=== PATIENT | female | born 1945 | race Caucasian/White ===

== ENCOUNTER 2025-04-29 12:42 | Outpatient (AMB) | payer MEDICARE, OTHER, SELFPAY ==
--- NOTE | 2025-04-29 12:55 | A.SPINEOV_ITS ---
Vital Signs 04/29/25 12:57 Height 5 ft 1 in Weight 102 lb BMI 19.3 Intake Visit Reasons: Neck Pain. Intake Note: Mrs. Castle is here today c/o tingling sensation on the neck area. 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 HPI: This 79-year-old female developed tingling in the distal part of her right arm radiating to her thumb after gardening. The symptoms started in January. Over time the symptoms have diminished but are still present intermittently. The only activity that produces reproducible symptoms is swimming. She can put makeup on develop the tingling. Currently he is mostly situated in the dorsal part of the lower arm. She went to the chiropractor. She denies pain. She denies weakness. She denies difficulty using her hands. She denies balance problems. The left side is unaffected. 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 She is able to reproduce tingling in the above-mentioned distribution with extension of her neck. No motor deficits. No sensory deficits. Normal reflexia. No pathological reflexes. 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 There are no signal changes in his spinal cord. Impression/Plan: This 79-year-old female is most likely suffering from a C6 radiculopathy tingling after guarding. She has no signs of myelopathy on exam. I advised her to continue conservative measures. I would not offer her a cervical decompression in the absence of clear myelopathic symptoms on history or exam. I would like to follow-up in 3 months for a re-evaluation. She will contact my office sooner if additional symptoms develop. She has no restrictions. Thank you for allowing me to participate in your patients care. total time spent was 50 minutes in counseling ,coordination of plan, personal review of imaging, surgical decision making and subsequent plan Jose Manuel Sanchez MD, PhD Spine Fellowship Trained Neurosurgeon Director, [facility] Coding Level of Care Code New Pt Level 4 (93663) Diagnoses Spinal cord compression due to degenerative disorder of spinal column M47.10
[2025-04-29 12:57] VITALS: BMI 19.3
--- OUTSIDE RECORDS SUMMARY | 2025-04-29 13:15 | XMS_ITS | Encounter Summary ---
Author Organization [facility] Address [address] [place] [phone] Phone Care Team Providers Care Ventilating Equipment Installer Name Role Phone Cony Camilo Primary Care Provider [phone] Encounter Details Date Type Department Care Team (Late st Contact Info) Description 04/09/2023 Transcribe Orders Virtual Department [address] [place] [address] Cony Camilo PA [address] [place] [phone] [email or web address] Breast screening (Primary Dx) Social History Tobacco Use Types Packs/Day Years Used Date Smoking Tobacco: Never Smokeless Tobacco: Never Alcohol Use Standard Drinks/Week Comments Never 0 (1 standard drink = 0.6 oz pur e alcohol) Education Answer Date Recorded Are you interested in more education? Not on ron e 01/25/2023 Are you concerned about learning? Not on file 01/25/2023 No 01/25/2023 No 01/25/2023 Digital Access Answer Date Recorded No 02/24/2023 No 02/24/2023 Reliable internet access at home? Not on file 02/24/2023 Device with a working camera? 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 Not on file Not on file documented as of this encounter Plan of Treatment Upcoming Encounters Date Type Department Care Team (Late st Contact Info) Description 12/12/2024 Procedure Pass [address] [id number] 06/22/2025 2:45 PM EDT Appointment [address] [address] Cony Camilo PA [address] [place] [phone] [email or web address] 06/25/2025 8:30 AM EDT Office Visit [facility] [address] [place] [phone] Jaxon Yang DO [address] [place] [phone] [email or web address] documented as of this encounter Goals Goal Patient Goal Type Associated Problems Recent Progress Patient-Stated? Author Attending meditation / other stress management classes Lifestyle No Everette, Juan Galindo MD, MPH documented as of this encounter Results * (ABNORMAL) BI MAMMOGRAM SCREENING WITH TOMOSYNTHESIS WITH CAD (BILATERAL) (02/18/2024 10:06 AM EDT) Anatomical Region Laterality Modality Breast Left, Breast Right, Breast Bilateral Bila teral Mammography 02/20/2024 8:26 AM EDT Addenda Addendum by Aparna Myrick MD on 03/12/2024 7:36 AM EDT ADDENDUM: Addendum: Remote prior mammograms from [facility] were obtained dated 12/05/2020. Upon comparison with outside priors, there is no change in the recommendation for additional imaging of right breast asymmetry. Impressions 03/03/2024 1:45 PM EDT 1. Asymmetry in the right breast for which additional imaging is recommended with diagnostic mammography and possible ultrasound. 2. No mammographic evidence of malignancy in the left breast. BI-RADS 0 INCOMPLETE Needs additional imaging evaluation The patient will be notified of the results and recommendations. The mammography department will contact the patient to arrange for the additional imaging. Narrative 03/03/2024 1:45 PM EDT BI MAMMOGRAM SCREENING WITH TOMOSYNTHESIS WITH CAD (BILATERAL) Additional patient information: Screening. COMPARISON: Comparison is made with relevant prior imaging, bilateral mammogram 02/15/2023, 02/13/2022. Breast composition: The breast tissue is heterogeneously dense which may obscure small masses. FINDINGS: Right An asymmetry with indistinct margins measuring 0.7 cm is present on MLO view in the upper right breast at posterior depth. Left No abnormal masses, suspicious calcifications, or other significant findings are identified mammographically in the left breast. Procedure Note Aparna Myrick MD - 03/03/2024 BI MAMMOGRAM SCREENING WITH TOMOSYNTHESIS WITH CAD (BILATERAL) Additional patient information: Screening. COMPARISON: Comparison is made with relevant prior imaging, bilateralmammogram 02/15/2023, 02/13/2022. Breast composition: The breast tissue is heterogeneously dense which mayobscure small masses. FINDINGS: Right An asymmetry with indistinct margins measuring 0.7 cm is present on MLOview in the upper right breast at posterior depth. Left No abnormal masses, suspicious calcifications, or other significantfindings are identified mammographically in the left breast. IMPRESSION: 1. Asymmetry in the right breast for which additional imaging isrecommended with diagnostic mammography and possible ultrasound. 2. No mammographic evidence of malignancy in the left breast. BI-RADS 0 INCOMPLETE Needs additional imaging evaluation The patient will be notified of the results and recommendations. Themammography department will contact the patient to arrange for theadditional imaging. Cony WELSH IMG MG EXAMS Edited Result - Final documented in this encounter Visit Diagnoses Diagnosis Breast screening- Primary Breast screening, unspecified Breast screening Breast screening, unspecified documented in this encounter Care Teams Ventilating Equipment Installer Relationship Specialty Start Date End Date Cony Camilo PA [address] [place] [phone] [email or web address] PCP - General 12/09/21 documented as of this encounter Additional Source Comments The information contained in this document represents components of the legal health record. It is not the complete legal health record.[facility]
--- OUTSIDE RECORDS SUMMARY | 2025-04-29 13:15 | XMS_ITS | Patient Health Record ---
Author Organization [facility] rajeev Address [address] [place] [address] Care Team Providers Care Nuclear Unit Operator Name Role Phone Cony Camilo Primary Care Provider Laquita Dempsey Unavailable [phone] Danny Tejeda Unavailable [phone] Phani Fragoso Unavailable [phone] Allergies Allergen (clinical drug ingredient) Drug/Non Drug Allergy documented on EMR Reaction Allergy Type Onset Date Status Penicillin rash/hives Drug Allergy Activ e neomycin Neomycin rash Drug Allergy Active cetirizine Cetirizine felt wired Drug Allergy Acti ve erythromycin Erythromycin nausea/vomiting Drug Allergy Active Results Component Value Reference Range Notes COMPREHENSIVE METABOLIC PAN -[id number] Reviewed date:08/19/2024 11:08:35 AM Interpretation: Performing Lab:NL2, [facility] [id number] Nataliia Tenorio Notes/Report: Received Date: NON-FASTING; NON-FASTING; NON-FASTING GLUCOSE 83 65-99 mg/dL Fasting reference interval UREA NITROGEN (BUN) 15 7-25 mg/dL CREATININE 0.74 0.60-1.00 mg/dL EGFR 83 > OR = 60 mL/min/1.73m2 BUN/CREATININE RATIO SEE NOTE: -22 (calc) Not Reported: BUN and Creatinine are within reference range. SODIUM 134 135-146 mmol/L POTASSIUM 4.6 3.5-5.3 mmol/L CHLORIDE 99 98-110 mmol/L CARBON DIOXIDE 30 20-32 mmol/L CALCIUM 9.2 8.6-10.4 mg/dL PROTEIN, TOTAL 6.4 6.1-8.1 g/dL ALBUMIN 4.5 3.6-5.1 g/dL GLOBULIN 1.9 1.9-3.7 g/dL (calc) ALBUMIN/GLOBULIN RATIO 2.4 1.0-2.5 (calc) BILIRUBIN, TOTAL 0.9 0.2-1.2 mg/dL ALKALINE PHOSPHATASE 49 37-153 U/L AST 15 10-35 U/L ALT 9 6-29 U/L LIPID PANEL Reviewed date:08/19/2024 11:08:52 AM Interpretation: Performing Lab:NL2, [facility] Nataliia Tenorio Notes/Report: Received Date: NON-FASTING; NON-FASTING; NON-FASTING CHOLESTEROL, TOTAL 158 <200 mg/dL HDL CHOLESTEROL 85 > OR = 50 mg/dL TRIGLYCERIDES 52 <150 mg/dL LDL-CHOLESTEROL 60 Reference range: <100 Desirable range <100 mg/dL for primary prevention; <70 mg/dL for patients with CHD or diabetic patients with > or = 2 CHD risk factors. LDL-C is now calculated using the -Rosenberg calculation, which is a validated novel method providing better accuracy than the Friedewald equation in the estimation of LDL-C. Martin CARRASQUILLO et al. ZARINA. 2013;310(19): 4047-3592 (http://education.modulR.com/f aq/FAZ873) CHOL/HDLC RATIO 1.9 <5.0 (calc) NON HDL CHOLESTEROL 73 <130 mg/dL (calc) For patients with diabetes plus 1 major ASCVD risk factor, treating to a non-HDL-C goal of <100 mg/dL (LDL-C of <70 mg/dL) is considered a therapeutic option. CBC NO DIFF - 1759 Reviewed date:08/19/2024 11:08:42 AM Interpretation: Performing Lab:NL2, [facility] Nataliia Tenorio Notes/Report: Received Date: NON-FASTING; NON-FASTING; NON-FASTING WHITE BLOOD CELL COUNT 5.7 3.8-10.8 Thousand/uL RED BLOOD CELL COUNT 4.12 3.80-5.10 Million/uL HEMOGLOBIN 13.2 11.7-15.5 g/dL HEMATOCRIT 40.6 35.0-45.0 % MCV 98.5 80.0-100.0 fL MCH 32.0 27.0-33.0 pg MCHC 32.5 32.0-36.0 g/dL For adults, a slight decrease in the calculated MCHC value (in the range of 30 to 32 g/dL) is most likely not clinically significant; however, it should be interpreted with caution in correlation with other red cell parameters and the patient's clinical condition. RDW 13.1 11.0-15.0 % PLATELET COUNT 254 140-400 Thousand/uL MPV 11.2 7.5-12.5 fL MRI CERVICAL SPINE (NEURO) F OCUS WITHOUT CONTRAST Reviewed date:03/27/2025 06:27:23 AM Interpretation: Performing Lab: Notes/Report: MRI CERVICAL SPINE (NEURO) FOCUS WITHOUT CONTRAST Referring clinician's provided indication for this examination in Epic: Outside Radiology Order TECHNIQUE: MRI CERVICAL SPINE (NEURO) FOCUS WITHOUT CONTRAST Multi-sequence, multi-planar MRI of the cervical spine was performed without intravenous contrast. COMPARISON: FINDINGS: CERVICAL SPINE: Alignment and Vertebrae: Normal alignment. No compression fracture. Marrow: No bone marrow replacing lesion. Discs and Endplates: There is moderate intervertebral disc height loss at C3-4, C4-5, C5-6, and C6-7. Spinal Cord: No spinal cord compression or signal abnormality. Soft Tissue: Normal. No prevertebral edema. Findings by level: C2-C3: No spinal canal or neural foraminal narrowing. C3-C4: There is mild spinal canal narrowing due to broad-based disc protrusion. There is moderate left and severe right neural foraminal narrowing. C4-C5: There is moderate spinal canal narrowing due to broad-based disc protrusion and ligamentum flavum infolding. There is severe bilateral neural foraminal narrowing. C5-C6: There is moderate spinal canal narrowing due to broad-based disc protrusion and ligamentum flavum infolding. There is severe bilateral neural foraminal narrowing. C6-C7: There is mild spinal canal narrowing due to broad-based disc protrusion. There is moderate bilateral neural foraminal narrowing. C7-T1: No spinal canal or neural foraminal narrowing. IMPRESSION: 1. Cervical degenerative change as above with moderate spinal canal narrowing at C4-5 and C5-6. Interpreted by: Hardik Cummins DO Signed by: Hardik Cummins DO 03/25/25 Final result Cspine wo Pt sts chronic rt arm tingling primarily from elbow to thumb -9 weeks ago was gardening and has begun to worsen since [facility] MRI CERVICAL SPINE (NEURO) FOCUS WITHOUT CONTRAST Referring clinician' s provided indication for this examination in Epic: Outside Radiology Order TECHNIQUE: MRI CERVI CAN SPINE (NEURO) FOCUS WITHOUT CONTRAST Multi-sequence, multi-planar MRI of the cervical spine was performed without intravenous contrast. COMPARISON: FINDINGS: CERVICAL SPINE: Alignment and Vertebrae: Normal alignment. No compression fracture. Marrow: No bone negrito ow replacing lesion. Discs and Endplates: There is moderate intervertebral disc height loss at C3-4, C4-5, C5-6, and C6-7. Spinal Cord: No spin al cord compression or signal abnormality. Soft Tissue: Normal. No prevertebral edema. Findings by level: C2-C3: No spinal can al or neural foraminal narrowing. C3-C4: There is mild spinal canal narrowing due to broad-based disc protrusion. There is moderate left and severe right neural foraminal narrowing. C4-C5: There is moderate spinal canal narrowing due to broad-based disc protrusion and ligamentum flavum infolding. There is severe bilateral neural foraminal narrowing. C5-C6: There is moderate spinal canal narrowing due to broad-based disc protrusion and ligamentum flavum infolding. There is severe bilateral neural foraminal narrowing. C6-C7: There is mild spinal canal narrowing due to broad-based disc protrusion. There is moderate bilateral neural foraminal narrowing. C7-T1: No spinal can al or neural foraminal narrowing. IMPRESSION: 1. Cervical degenerative change as above with moderate spinal canal narrowing at C4-5 and C5-6. Electronically Kristin d by: Hardik Cummins MD on 03/25/2025 11:52 AM Interpreted by: Hardik Cummins DO Signed by: Hardik Cummins DO 03/25/25 Final result Cspine wo Pt sts chronic rt ar m tingling primarily from elbow to thumb -9 weeks ago was gardening and has begun to worsen since Reason For Referral Reason repeat colonoscopy d ue 2024, h/o polyps, redundant colon - pt would like to discuss with MD prior to considering repeat colonoscopy Diagnosis 1 Encounter for screen ing for malignant neoplasm of colon (Z12.11) Referral Organization [facility] NO Referring Provider First Name Cony Referring Provider Last Name Ton Referring Provider [facility] ctice Referred Provider [employer] [employer] Referred Provider Specialty Gastroentero logy General Notes Radha Guerin 08/01 01:38:52 PM > referral faxed to: [phone] Clinical Notes Provider Name: TRACEY Anderson, Provider , Address1: [address], Zip: [place], [address], , Referral Priority Routine Reason PT for help developi ng an independent bone building exercise program for her osteoporosis with Philip Fleming Diagnosis 1 Osteoporosis NOS (M8 1.0) Referral Organization [facility] Referring Provider First Name Cony Referring Provider Last Name Ton Referring Provider [facility] ctice Referred Provider Fran Bravo, [facility] Referred Provider Specialty PT,OT, SPEEC H General Notes PT referral to [facility] [place] for Christelle to see Philip Fleming, PT for help developing an independent bone building exercise program for her osteoporosis, Radha Guerin 09/26/2024 09:36:47 AM > Referral faxed to: [phone] Clinical Notes Provider Name: Hilda B[facility], [facility] [place], Provider , Address1: [address], Zip: [place], [address], , Referral Priority Routine Reason for cervical radicul opathy Diagnosis 1 Radiculopathy, cervi can region (M54.12) Referral Organization [facility] Referring Provider First Name Cony Referring Provider Last Name Ton Referring Provider [facility] ctice Referred Provider Bull Kramre NEOS Referred Provider Specialty Orthopedic S urgery General Notes Radha Guerin 10/2024 07:19:51 AM > referral faxed to: [phone] Clinical Notes Provider Name: Bull Kramer [facility]OS, Provider , Provider Speciality: Orthopedic Surgery, Address1: [address] [place], [place] [address], [facility], Zip: [place], [address], , Referral Priority Routine Reason cervical radiculopat hy Diagnosis 1 Radiculopathy, cervi can region (M54.12) Referral Organization [facility] Referring Provider First Name Cony Referring Provider Last Name Ton Referring Provider Speciality Family Pra gume Referred Provider Iván Padilla Referred Provider Specialty Neurosurgery General Notes Radha Guerin 11/2024 09:07:15 AM > referral faxed to: [phone] Clinical Notes Provider Name: Ana Padilla, Provider , Address1: [address] [place] [address], Address2: [address] , [facility], Zip: [place], [address], , Referral Priority Routine Medications Medication SIG (Take, Route, Frequency, Duration) Notes Start Date End Date Status Finasteride 5 MG 1 tab(s) orally every other day for 90 days Active Vitamin D3 50 MCG (1999 UT) 1 tablet orally once a day 2500IUs Active Pravastatin Sodium 20 MG TAKE 1 TABLET BY MOUTH EVERY DAY FOR 90 DAYS for 90 Active Losartan Potassium 50 MG 1 tab(s) orally once a day for 90 days Active Reclast 5 MG/100ML as directed Intravenous once a yr Active Calcium 600 MG 1 tablet with meals Orally once a day unsure of strength Active Magnesium - as directed Orally once a day unsure of strength Active Immunizations Vaccine Route Administration Date Status Comme nts COVID-19 Vaccine (Moderna), History Unknown 12/20/2020 Administered COVID-19 Vaccine (Moderna), History Unknown 11/22/2020 Administered FLUZONE HIGH DOSE 65+ PURCHASED IM Intramuscular 07/04/2021 Administered Shingrix, history Unknown 07/30/2018 Administered Shingrix, history Unknown 02/27/2018 Administered Hep A Vaccine; History Unknown 03/31/2014 Administered Hep A Vaccine; History Unknown 12/08/2014 Administered Flu Vaccine; History Unknown 08/17/2013 Administered Flu Vaccine; History Unknown 07/23/2015 Administered Flu Vaccine; History Unknown 08/14/2017 Administered Flu Vaccine; History Unknown 06/25/2018 Administered Flu Vaccine; History Unknown 07/16/2019 Administered Flu Vaccine; History Unknown 07/13/2020 Administered pneumovax vaccine history Unknown 11/14/2012 Administer ed Prevnar 13 History Unknown 12/08/2014 Administered IPV Vaccine; History Unknown 03/31/2014 Administered rubella vaccine (history) Unknown 11/14/1991 Administer ed TDAP history Unknown 02/24/2012 Administered Covid Vaccine Booster (Moderna), History Unknown 08/01/2021 Administered Covid Vaccine Booster (Moderna), History Unknown 01/16/2022 Administered Covid Vac Bivalent Pfizer (history) 12+ Unknown 06/19/2022 Administered Flu Vaccine; History Unknown 06/11/2023 Administered COVID VACC 12+ MODERNA Unknown 06/20/2023 Administered Fluzone High Dose; HISTORY Unknown 06/09/2024 Administe red RSV VACC HISTORY ADULT Unknown 06/09/2024 Administered COVID HISTORY SPIKEVAX 12+ MODERNA Unknown 12/26/2023 Administered TDAP history Unknown 09/10/2024 Administered COVID HISTORY SPIKEVAX 12+ MODERNA Unknown 06/09/2024 Administered Social History Tobacco Use: Social History Observation Description Date Details (start date - stop date) Never Smoker NA - NA Smoking Smart Form: Question Answer Notes Are you a: nonsmoker Section Notes: Nutrition: vegetarian mostly , eats fish, chicken occasionally Nutrition: vegetarian mostly , eats fish, chicken occasionally Nutrition: vegetarian mostly , eats fish, chicken occasionally Nutrition: vegetarian mostly , eats fish, chicken occasionally Nutrition: vegetarian mostly , eats fish, chicken occasionally Nutrition: vegetarian mostly , eats fish, chicken occasionally Nutrition: vegetarian mostly , eats fish, chicken occasionally Nutrition: vegetarian mostly , eats fish, chicken occasionally Nutrition: vegetarian mostly , eats fish, chicken occasionally Nutrition: vegetarian mostly , eats fish, chicken occasionally Nutrition: vegetarian mostly , eats fish, chicken occasionally Nutrition: vegetarian mostly , eats fish, chicken occasionally Nutrition: vegetarian mostly , eats fish, chicken occasionally Nutrition: vegetarian mostly , eats fish, chicken occasionally Nutrition: vegetarian mostly , eats fish, chicken occasionally Nutrition: vegetarian mostly , eats fish, chicken occasionally Nutrition: vegetarian mostly , eats fish, chicken occasionally Nutrition: vegetarian mostly , eats fish, chicken occasionally Nutrition: vegetarian mostly , eats fish, chicken occasionally Nutrition: vegetarian mostly , eats fish, chicken occasionally Nutrition: vegetarian mostly , eats fish, chicken occasionally Nutrition: vegetarian mostly , eats fish, chicken occasionally Nutrition: vegetarian mostly , eats fish, chicken occasionally Nutrition: vegetarian mostly , eats fish, chicken occasionally Nutrition: vegetarian mostly , eats fish, chicken occasionally Nutrition: vegetarian mostly , eats fish, chicken occasionally Nutrition: vegetarian mostly , eats fish, chicken occasionally Nutrition: vegetarian mostly , eats fish, chicken occasionally Nutrition: vegetarian mostly , eats fish, chicken occasionally Problems Problem Type SNOMED Code ICD Code Onset Dates Problem Status W/U Status Risk Notes Problem Hyperlipidemia (11164341) Hyperlipidemia, unspecified (E78.5) Active confirmed Problem Essential hypertension (48939402) Hypertension, essential (I10) Active confirmed Problem Cataract (701966581) Cataract NOS (H26.9) Active confirmed Problem Cervical radiculopathy (55742981) Radiculopathy, cervical region (M54.12) Active confirmed Problem Osteoporosis (04247034) Osteoporosis NOS (M81.0) Active confirmed Problem Paresthesia (finding) (11235482) Paresthesias (R20.2) Active confirmed Vital Signs Temperature 97.7 degrees Fahrenheit 01/20/2025 Oximetry 98 01/20/2025 Blood pressure diastolic 68 mm Hg 01/20/2025 Height 61.0 in 04/01/2025 Blood pressure systolic 134 mm Hg 01/20/2025 Weight 101.0 lbs 04/01/2025 BMI 19.08 kg/m2 04/01/2025 Encounters Encounter Location Date Provider Diagnosis [address] [address] 01/20/2025 Phani Fragoso Paresthesias R20.[address] [address] 08/11/2024 Cony Camilo Adult physical JÚNIOR L Z00.00 ; Hypertension, essential I10 ; Hyperlipidemia, unspecified E78.5 ; Osteoporosis NOS M81.0 and Encounter for screening for malignant neoplasm of colon Z12.[address] [address] 11/26/2024 Cony Camilo Cataract NOS H26.9 ; Pre-op examination Z01.818 and Hypertension, essential I10 [address] [address] 01/27/2025 Danny Potash Radiculopathy, cervical region M54.12 and Segmental and somatic dysfunction of cervical region M99.[address] [address] 01/29/2025 Danny Potash Radiculopathy, cervical region M54.12 and Segmental and somatic dysfunction of cervical region M99.[address] [address] 02/03/2025 Danny Potash Radiculopathy, cervical region M54.12 and Segmental and somatic dysfunction of cervical region M99.[address] [address] 02/05/2025 Danny Potash Radiculopathy, cervical region M54.12 and Segmental and somatic dysfunction of cervical region M99.[address] [address] 02/10/2025 Danny Potash Radiculopathy, cervical region M54.12 and Segmental and somatic dysfunction of cervical region M99.[address] [address] 02/12/2025 Danny Potash Radiculopathy, cervical region M54.12 and Segmental and somatic dysfunction of cervical region M99.[address] [address] 02/19/2025 Danny Potash Radiculopathy, cervical region M54.12 and Segmental and somatic dysfunction of cervical region M99.[address] [address] 02/24/2025 Danny Potash Radiculopathy, cervical region M54.12 and Segmental and somatic dysfunction of cervical region M99.[address] [address] 02/26/2025 Danny Potash Radiculopathy, cervical region M54.12 and Segmental and somatic dysfunction of cervical region M99.[address] [address] 03/03/2025 Danny Potash Radiculopathy, cervical region M54.12 and Segmental and somatic dysfunction of cervical region M99.[address] [address] 03/17/2025 Danny Potash Radiculopathy, cervical region M54.12 ; Segmental and somatic dysfunction of cervical region M99.01 and Segmental and somatic dysfunction of thoracic region M99.[address] [address] 03/26/2025 Danny Potash Radiculopathy, cervical region M54.12 ; Segmental and somatic dysfunction of cervical region M99.01 and Segmental and somatic dysfunction of thoracic region M99.[address] [address] 04/01/2025 Cony Ton Radiculopathy, cervical region M54.12 [place] [address] [place] [address] 09/25/2024 Cony Ton [place] [address] [place] [address] 09/30/2024 Cony Ton [place] [address] [place] [address] 04/01/[address] Cony Ton [address] [address] 06/02/2024 Cony Ton [facility] [address] [address] 12/22/2024 Cony Ton [address] [address] 12/25/2024 Cony Ton [facility] [address] [place] [address] 01/20/2025 Laquita [facility] [address] [place] [address] 02/26/2025 Cony Ton Radiculopathy, cervical region M54.12 [facility] [address] [place] [address] 02/26/2025 Cony Ton [facility] [address] [place] [address] 02/27/2025 Cony Ton [facility] [address] [place] [address] 03/26/2025 Cony Ton [facility] [address] [address] 03/26/2025 Cony Ton [facility] [address] [place] [id number] 04/07/2025 Cony Ton [facility] [address] [place] [address] 04/22/2025 Cony Ton [place] [address] [place] [address] 04/23/2025 Laquita Dempsey Dempsey [place] [address] [place] [address] 04/23/2025 Laquita Dempsey Assessments Encounter Date Diagnosis (ICD Code) Assessment Notes Treatment Notes Treatment Clinical Notes Section Notes 01/20/2025 Paresthesias (ICD-10 - R20.2) -No red flags. Neuro exam reassuring. No indications for imaging. -Will start OTC aleve BID x 7 days for inflammation reduction. Can cont heat/ice prn. Advised caution with use of right arm. Pt planning to book appt with Danny for chiro as well. -Provided s/sx to contact us and when to f/up. Pt verbalizes good understanding. 08/11/2024 Adult physical NORMAL (ICD-10 - Z00.00) Mammo UTD. Due for repeat colonoscopy next year. Nutrition/exerc ise. Check labs. Labia with mild erythema and excoriation- no signs c/w lichen sclerosus- will monitor for now. 08/11/2024 Hypertension, essential (ICD-10 - I10) BP well controlled, continue current med regimen, check labs. 11/26/2024 Cataract NOS (ICD-10 - H26.9) Has upcoming cataract surgery with Dr. Rosen (R cataract 12/04/24, L cataract 12/11/24 at [facility]). Pt is medically optimized for upcoming procedure. 11/26/2024 Pre-op examination (ICD-10 - Z01.818) 01/27/2025 Radiculopathy, cervical region (ICD-10 - M54.12) Acute right upper extremity paresthesia likely secondary to cervical spondylosis creating lateral canal stenosis. Patient is neurologically intact and there are no overt contraindications to care at this time. prognosis is good at this time due to acuity of complaint, intermittent nature of symptoms and lack of hard neurological findings. 01/27/2025 Segmental and somatic dysfunction of cervical region (ICD-10 - M99.01) Acute right upper extremity paresthesia likely secondary to cervical spondylosis creating lateral canal stenosis. Patient is neurologically intact and there are no overt contraindications to care at this time. prognosis is good at this time due to acuity of complaint, intermittent nature of symptoms and lack of hard neurological findings. 01/29/2025 Radiculopathy, cervical region (ICD-10 - M54.12) Acute right upper extremity paresthesia likely secondary to cervical spondylosis creating lateral canal stenosis. Patient is neurologically intact and there are no overt contraindications to care at this time. prognosis is good at this time due to acuity of complaint, intermittent nature of symptoms and lack of hard neurological findings. 02/03/2025 Radiculopathy, cervical region (ICD-10 - M54.12) Acute right upper extremity paresthesia likely secondary to cervical spondylosis creating lateral canal stenosis. Patient is neurologically intact and there are no overt contraindications to care at this time. prognosis is good at this time due to acuity of complaint, intermittent nature of symptoms and lack of hard neurological findings. 02/05/2025 Radiculopathy, cervical region (ICD-10 - M54.12) Acute right upper extremity paresthesia likely secondary to cervical spondylosis creating lateral canal stenosis. Patient is neurologically intact and there are no overt contraindications to care at this time. prognosis is good at this time due to acuity of complaint, intermittent nature of symptoms and lack of hard neurological findings. 02/10/2025 Radiculopathy, cervical region (ICD-10 - M54.12) Acute right upper extremity paresthesia likely secondary to cervical spondylosis creating lateral canal stenosis. Patient is neurologically intact and there are no overt contraindications to care at this time. prognosis is good at this time due to acuity of complaint, intermittent nature of symptoms and lack of hard neurological findings. 02/12/2025 Radiculopathy, cervical region (ICD-10 - M54.12) Acute right upper extremity paresthesia likely secondary to cervical spondylosis creating lateral canal stenosis. Patient is neurologically intact and there are no overt contraindications to care at this time. prognosis is good at this time due to acuity of complaint, intermittent nature of symptoms and lack of hard neurological findings. 02/19/2025 Radiculopathy, cervical region (ICD-10 - M54.12) Acute right upper extremity paresthesia. DDX includes cervical spondylosis creating lateral canal stenosis vs thoracic outlet syndrome. Patient is neurologically intact and there are no overt contraindications to care at this time. prognosis is good at this time due to acuity of complaint, intermittent nature of symptoms and lack of hard neurological findings. 02/24/2025 Radiculopathy, cervical region (ICD-10 - M54.12) Acute right upper extremity paresthesia. DDX includes cervical spondylosis creating lateral canal stenosis vs thoracic outlet syndrome. Patient is neurologically intact and there are no overt contraindications to care at this time. prognosis is good at this time due to acuity of complaint, intermittent nature of symptoms and lack of hard neurological findings. 02/26/2025 Radiculopathy, cervical region (ICD-10 - M54.12) Acute right upper extremity paresthesia. DDX includes cervical spondylosis creating lateral canal stenosis vs thoracic outlet syndrome. Patient is neurologically intact and there are no overt contraindications to care at this time. prognosis is good at this time due to acuity of complaint, intermittent nature of symptoms and lack of hard neurological findings. 03/03/2025 Radiculopathy, cervical region (ICD-10 - M54.12) Acute right upper extremity paresthesia. DDX includes cervical spondylosis creating lateral canal stenosis vs thoracic outlet syndrome. Patient is neurologically intact and there are no overt contraindications to care at this time. prognosis is good at this time due to acuity of complaint, intermittent nature of symptoms and lack of hard neurological findings. 03/17/2025 Radiculopathy, cervical region (ICD-10 - M54.12) Subacute right upper extremity paresthesia. DDX includes cervical spondylosis creating lateral canal stenosis vs thoracic outlet syndrome. Patient is neurologically intact and there are no overt contraindications to care at this time. prognosis is good at this time due to acuity of complaint, intermittent nature of symptoms and lack of hard neurological findings. 03/17/2025 Segmental and somatic dysfunction of cervical region (ICD-10 - M99.01) Subacute right upper extremity paresthesia. DDX includes cervical spondylosis creating lateral canal stenosis vs thoracic outlet syndrome. Patient is neurologically intact and there are no overt contraindications to care at this time. prognosis is good at this time due to acuity of complaint, intermittent nature of symptoms and lack of hard neurological findings. 03/26/2025 Radiculopathy, cervical region (ICD-10 - M54.12) Subacute right upper extremity paresthesia. DDX includes cervical spondylosis creating lateral canal stenosis vs thoracic outlet syndrome. Patient is neurologically intact and there are no overt contraindications to care at this time. prognosis is good at this time due to acuity of complaint, intermittent nature of symptoms and lack of hard neurological findings. 04/01/2025 Radiculopathy, cervical region (ICD-10 - M54.12) Reviewed MRI results with pt and her symptoms- rec consult with specialist to further eval her symptoms and interpret MRI results. 02/26/2025 Radiculopathy, cervical region (ICD-10 - M54.12) 08/11/2024 Hyperlipidemia, unspecified (ICD-10 - E78.5) On statin, check labs. 11/26/2024 Hypertension, essential (ICD-10 - I10) BP well controlled. 01/29/2025 Segmental and somatic dysfunction of cervical region (ICD-10 - M99.01) Acute right upper extremity paresthesia likely secondary to cervical spondylosis creating lateral canal stenosis. Patient is neurologically intact and there are no overt contraindications to care at this time. prognosis is good at this time due to acuity of complaint, intermittent nature of symptoms and lack of hard neurological findings. 02/03/2025 Segmental and somatic dysfunction of cervical region (ICD-10 - M99.01) Acute right upper extremity paresthesia likely secondary to cervical spondylosis creating lateral canal stenosis. Patient is neurologically intact and there are no overt contraindications to care at this time. prognosis is good at this time due to acuity of complaint, intermittent nature of symptoms and lack of hard neurological findings. 02/05/2025 Segmental and somatic dysfunction of cervical region (ICD-10 - M99.01) Acute right upper extremity paresthesia likely secondary to cervical spondylosis creating lateral canal stenosis. Patient is neurologically intact and there are no overt contraindications to care at this time. prognosis is good at this time due to acuity of complaint, intermittent nature of symptoms and lack of hard neurological findings. 02/10/2025 Segmental and somatic dysfunction of cervical region (ICD-10 - M99.01) Acute right upper extremity paresthesia likely secondary to cervical spondylosis creating lateral canal stenosis. Patient is neurologically intact and there are no overt contraindications to care at this time. prognosis is good at this time due to acuity of complaint, intermittent nature of symptoms and lack of hard neurological findings. 02/12/2025 Segmental and somatic dysfunction of cervical region (ICD-10 - M99.01) Acute right upper extremity paresthesia likely secondary to cervical spondylosis creating lateral canal stenosis. Patient is neurologically intact and there are no overt contraindications to care at this time. prognosis is good at this time due to acuity of complaint, intermittent nature of symptoms and lack of hard neurological findings. 02/19/2025 Segmental and somatic dysfunction of cervical region (ICD-10 - M99.01) Acute right upper extremity paresthesia. DDX includes cervical spondylosis creating lateral canal stenosis vs thoracic outlet syndrome. Patient is neurologically intact and there are no overt contraindications to care at this time. prognosis is good at this time due to acuity of complaint, intermittent nature of symptoms and lack of hard neurological findings. 02/24/2025 Segmental and somatic dysfunction of cervical region (ICD-10 - M99.01) Acute right upper extremity paresthesia. DDX includes cervical spondylosis creating lateral canal stenosis vs thoracic outlet syndrome. Patient is neurologically intact and there are no overt contraindications to care at this time. prognosis is good at this time due to acuity of complaint, intermittent nature of symptoms and lack of hard neurological findings. 02/26/2025 Segmental and somatic dysfunction of cervical region (ICD-10 - M99.01) Acute right upper extremity paresthesia. DDX includes cervical spondylosis creating lateral canal stenosis vs thoracic outlet syndrome. Patient is neurologically intact and there are no overt contraindications to care at this time. prognosis is good at this time due to acuity of complaint, intermittent nature of symptoms and lack of hard neurological findings. 03/03/2025 Segmental and somatic dysfunction of cervical region (ICD-10 - M99.01) Acute right upper extremity paresthesia. DDX includes cervical spondylosis creating lateral canal stenosis vs thoracic outlet syndrome. Patient is neurologically intact and there are no overt contraindications to care at this time. prognosis is good at this time due to acuity of complaint, intermittent nature of symptoms and lack of hard neurological findings. 03/17/2025 Segmental and somatic dysfunction of thoracic region (ICD-10 - M99.02) Subacute right upper extremity paresthesia. DDX includes cervical spondylosis creating lateral canal stenosis vs thoracic outlet syndrome. Patient is neurologically intact and there are no overt contraindications to care at this time. prognosis is good at this time due to acuity of complaint, intermittent nature of symptoms and lack of hard neurological findings. 03/26/2025 Segmental and somatic dysfunction of cervical region (ICD-10 - M99.01) Subacute right upper extremity paresthesia. DDX includes cervical spondylosis creating lateral canal stenosis vs thoracic outlet syndrome. Patient is neurologically intact and there are no overt contraindications to care at this time. prognosis is good at this time due to acuity of complaint, intermittent nature of symptoms and lack of hard neurological findings. 08/11/2024 Osteoporosis NOS (ICD-10 - M81.0) On Reclant, followed by Dr. Yang. 03/26/2025 Segmental and somatic dysfunction of thoracic region (ICD-10 - M99.02) Subacute right upper extremity paresthesia. DDX includes cervical spondylosis creating lateral canal stenosis vs thoracic outlet syndrome. Patient is neurologically intact and there are no overt contraindications to care at this time. prognosis is good at this time due to acuity of complaint, intermittent nature of symptoms and lack of hard neurological findings. 08/11/2024 Encounter for screening for malignant neoplasm of colon (ICD-10 - Z12.11) 08/11/2024 Other Health maintenance flow sheet reveiwed and updated 01/27/2025 Other gentle mobilization to restrictions palpated on exam in supine position Manual myofascial release to soft tissue findings palpated on exam Therapeutic exercise: Practiced and recommended cervical retraction exercises x 20 repetitions. Recommended to continue at home for 10 repetitions every 2 hours and to stop if her symptoms are to worsen. Recommended to continue with her regular activities including swim, painting and gardening and to stop if her symptoms are to significantly worsen during the activity despite taking breaks and paying attention to her neck posture. Posttreatment: treatment rendered without incident recommended to return for care in 2 days followed by 1-2 times weekly care for 3-5 visits for initial trial of care. Goal for treatment is to significantly improve paresthesias and return to full activity Acute right upper extremity paresthesia likely secondary to cervical spondylosis creating lateral canal stenosis. Patient is neurologically intact and there are no overt contraindications to care at this time. prognosis is good at this time due to acuity of complaint, intermittent nature of symptoms and lack of hard neurological findings. 01/29/2025 Other gentle mobilization to restrictions palpated on exam in supine position Manual myofascial release to soft tissue findings palpated on exam Posttreatment: treatment rendered without incident recommended to return 1-2 times weekly care for 3-5 visits for initial trial of care. Goal for treatment is to significantly improve paresthesias and return to full activity Acute right upper extremity paresthesia likely secondary to cervical spondylosis creating lateral canal stenosis. Patient is neurologically intact and there are no overt contraindications to care at this time. prognosis is good at this time due to acuity of complaint, intermittent nature of symptoms and lack of hard neurological findings. 02/03/2025 Other gentle mobilization to restrictions palpated on exam in supine position Manual myofascial release to soft tissue findings palpated on exam Practiced and recommended median nerve flossing x 15 reps 3 sets/day to help improve sensation Posttreatment: treatment rendered without incident recommended to return 1-2 times weekly care for 3-5 visits for initial trial of care. Goal for treatment is to significantly improve paresthesias and return to full activity Acute right upper extremity paresthesia likely secondary to cervical spondylosis creating lateral canal stenosis. Patient is neurologically intact and there are no overt contraindications to care at this time. prognosis is good at this time due to acuity of complaint, intermittent nature of symptoms and lack of hard neurological findings. 02/05/2025 Other gentle mobilization to restrictions palpated on exam in supine position Manual myofascial release to soft tissue findings palpated on exam Practiced and recommended inclined pushups 10-15 reps 2 sets to help improve shoulder stability to decrease symptoms Posttreatment: treatment rendered without incident recommended to return 1-2 times weekly care for 3-5 visits for initial trial of care. Goal for treatment is to significantly improve paresthesias and return to full activity Acute right upper extremity paresthesia likely secondary to cervical spondylosis creating lateral canal stenosis. Patient is neurologically intact and there are no overt contraindications to care at this time. prognosis is good at this time due to acuity of complaint, intermittent nature of symptoms and lack of hard neurological findings. 02/10/2025 Other gentle mobilization to restrictions palpated on exam in supine position Manual myofascial release to soft tissue findings palpated on exam Practiced and recommended knee pushups 4-5 reps x 3 sets/day sets to help improve shoulder stability to decrease symptoms. Also discussed and practiced keeping shoulder engaged when reaching Posttreatment: treatment rendered without incident recommended to return 1-2 times weekly care for an additional 3-5 visits. Goal for treatment is to significantly improve paresthesias and return to full activity Acute right upper extremity paresthesia likely secondary to cervical spondylosis creating lateral canal stenosis. Patient is neurologically intact and there are no overt contraindications to care at this time. prognosis is good at this time due to acuity of complaint, intermittent nature of symptoms and lack of hard neurological findings. 02/12/2025 Other gentle mobilization to restrictions palpated on exam in supine position Manual myofascial release to soft tissue findings palpated on exam regressed from knee pushups to elevated surface pushups 3 sets 10-15 due to poor form on knees Posttreatment: treatment rendered without incident recommended to return 1 time weekly care for an additional 2-3 visits. Goal for treatment is to significantly improve paresthesias and return to full activity Acute right upper extremity paresthesia likely secondary to cervical spondylosis creating lateral canal stenosis. Patient is neurologically intact and there are no overt contraindications to care at this time. prognosis is good at this time due to acuity of complaint, intermittent nature of symptoms and lack of hard neurological findings. 02/19/2025 Other gentle mobilization to restrictions palpated on exam in supine position Manual myofascial release to soft tissue findings palpated on exam progressed to knee pushups 2 sets 5 1-2x/day, also practiced corner pectoralis stretching 20s-1min holds 3+x/day, and banded scapular retractions with yellow theraband 15 reps 2-3 sets/day. Omitted nerve flossing due to lack of efficacy. Posttreatment: treatment rendered without incident recommended to return 1 time weekly care for an additional 2-3 visits. Goal for treatment is to significantly improve paresthesias and return to full activity Acute right upper extremity paresthesia. DDX includes cervical spondylosis creating lateral canal stenosis vs thoracic outlet syndrome. Patient is neurologically intact and there are no overt contraindications to care at this time. prognosis is good at this time due to acuity of complaint, intermittent nature of symptoms and lack of hard neurological findings. 02/24/2025 Other gentle mobilization to restrictions palpated on exam in supine position Manual myofascial release to soft tissue findings palpated on exam amended HEP to include only cervical retraction exercises for 10 repetitions every 2 hours as well as isometric neck strengthening in retraction and the lateral flexion bilaterally for 3 sets of 30 second holds in each direction gentle mobilization to cervical spine restrictions palpated on exam in seated position coordinated care with primary care physician to order a cervical MRI to rule out degenerative cervical myelopathy Posttreatment: treatment rendered without incident Acute right upper extremity paresthesia. DDX includes cervical spondylosis creating lateral canal stenosis vs thoracic outlet syndrome. Patient is neurologically intact and there are no overt contraindications to care at this time. prognosis is good at this time due to acuity of complaint, intermittent nature of symptoms and lack of hard neurological findings. 02/26/2025 Other gentle mobilization to restrictions palpated on exam in supine position Manual myofascial release to soft tissue findings palpated on exam Practiced using cervical traction unit x 10 minutes and gave instructions for home care. Will trial this at home for 4 days and continue use if it is helpful for her symptoms. Recommended use up to 20 mins per day at below 20lbs pressure. Posttreatment: treatment rendered without incident Acute right upper extremity paresthesia. DDX includes cervical spondylosis creating lateral canal stenosis vs thoracic outlet syndrome. Patient is neurologically intact and there are no overt contraindications to care at this time. prognosis is good at this time due to acuity of complaint, intermittent nature of symptoms and lack of hard neurological findings. 03/03/2025 Other gentle mobilization to restrictions palpated on exam in supine position Manual myofascial release to soft tissue findings palpated on exam Discussed return to gym and recommended starting 2x/week with emphasis on maintaining neutral neck and shoulder posture during exercise Posttreatment: treatment rendered without incident Acute right upper extremity paresthesia. DDX includes cervical spondylosis creating lateral canal stenosis vs thoracic outlet syndrome. Patient is neurologically intact and there are no overt contraindications to care at this time. prognosis is good at this time due to acuity of complaint, intermittent nature of symptoms and lack of hard neurological findings. 03/17/2025 Other gentle mobilization to restrictions palpated on exam in supine position Manual myofascial release to soft tissue findings palpated on exam practiced and recommended doorway pectoralis stretching 30s-1min holds 3-5 mins/day and self massage to periscapular region with lax ball 2-3 mins/day Posttreatment: treatment rendered without incident Subacute right upper extremity paresthesia. DDX includes cervical spondylosis creating lateral canal stenosis vs thoracic outlet syndrome. Patient is neurologically intact and there are no overt contraindications to care at this time. prognosis is good at this time due to acuity of complaint, intermittent nature of symptoms and lack of hard neurological findings. 03/26/2025 Other gentle mobilization to restrictions palpated on exam in supine position Manual myofascial release to soft tissue findings palpated on exam practiced and recommended cervical retraction exercises as well as cervical self traction with her hands for 10-15 seconds at a time. Recommended to practice each of these 5 times per day and to stop if her symptoms are to worsen. Goal is to help improve space in the cervical neuroforamina to alleviate nerve compression. Also practice and recommended arm circles in each direction for 1 minute each to be practice 2 times per day. Goal is to help improve shoulder range of motion and strength with goal of alleviating compression around the thoracic outlet region. reviewed her MRI findings and coordinated care with PCP to facilitate referral to orthopedist for further evaluation and management Posttreatment: treatment rendered without incident we will follow up in 3-4 weeks Subacute right upper extremity paresthesia. DDX includes cervical spondylosis creating lateral canal stenosis vs thoracic outlet syndrome. Patient is neurologically intact and there are no overt contraindications to care at this time. prognosis is good at this time due to acuity of complaint, intermittent nature of symptoms and lack of hard neurological findings. Plan Of Treatment Pending Test Test Name Order Date ekg 05/17/2022 Mammogram, routine annual screening 11/2021 X ray : Humerus, Left 10/16/2022 X Ray : Tibia & Fibula, R 07/20/2022 HEMOGLOBIN A1C 08/08/2023 BASIC METABOLIC PANEL 01/09/2022 BI MAMMOGRAM DIAGNOSTIC (BILATERAL) 11/2021 Covid-19 PCR (use this one) 10/04/2021 Covid-19 PCR (use this one) 08/15/2021 Covid-19 PCR (use this one) 08/19/2021 Next Appt Details Provider Name:Cony Craig Camilo, 08/12/2025 01:30:00 PM, [address] [place], [id number], Insurance Providers Payer Name Payer Address Payer Phone Subscriber Number Group Number Insured Name Patient Relationship to Insured Coverage Start Date Coverage End Date MEDICARE [address] [place] [phone] [id number] CHRISTELLE VILLARREAL Self - patient is the insured [facility] SUPP [id number] ALTH [address] [place] [address] [id number] CHRISTELLE VILLARREAL Self - patient is the insured Medical (General) History Medical History History ICD Code Osteoporosis, bone density M ay 2020, stable; Dr. Yang - will be starting Reclast in Aug Hypertension Hyperlipidemia Sensitive skin R distal radius fx and repair, [facility], Dr. Santino [email or web address] 07/2022 Colonoscopy Oct/Nov 2020, repeat 5 years Surgical History Surgery Date(Month/Year) Cataract surgery for both eyes- Dr. fabiana khoury in [place] 01/2025 Limpoma removal R upper arm- [facility] 06/2022 R wrist fracture @ [facility] 12/23/21
== END 2025-04-29 13:58 | disposition home or self-care (01) ==
LOC: HO.HNS 12:42
PROVIDERS: PCP Physician Assistant; Visit Provider Neurological Surgery
DX: M47.10 Other spondylosis with myelopathy, site unspecified (principal)
CPT/HCPCS: 99204

== ENCOUNTER → 2025-04-29 12:42 | Outpatient (BNVA) | payer MEDICARE, OTHER, SELFPAY | PROVIDERS: PCP Physician Assistant; Visit Provider Neurological Surgery | DX: M47.12 Other spondylosis with myelopathy, cervical region (principal) | CPT/HCPCS: 99202 ==

== ENCOUNTER 2025-05-06 12:39 | Outpatient (AMB) | payer MEDICARE, OTHER, SELFPAY ==
--- NOTE | 2025-05-06 12:41 | HO.SPINEOV ---
Intake Visit Reasons: follow up Intake Note: Mrs. Castle is here today for a 3 month f/u after conservative treatments. 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 As you know, she has intermittent tingling in the right distal arm and an MRI showing spinal cord compression without myelomalacia. I did not find any alarming symptoms on exam and therefore I advised her to return to my clinic in 3 months for a repeat neurological exam. She had seen a neurosurgeon before who recommended an urgent cervical decompression and told us she was at risk for paralysis, especially in the event of a trauma. The literature does not support this. In fact the literature states that there is no evidence that people with pre-existent spinal cord compression are at a higher risk for injury. I repeated neurological exam today and also had a neurological exam performed by ANITHA Villegas. We both did not find pathological reflexes on exam. Maybe the knee reflexes were somewhat brisk bilaterally. I reiterated to the patient that I would not jump into a surgery and I would like to repeat an exam in 3 months unless her symptoms are progressive. I spent 15 minutes in his consult, Jose Manuel Sanchez MD, PhD Spine Fellowship Trained Neurosurgeon Director, [facility] Coding Level of Care Code Est Pt Level 2 (43604) Diagnoses Spinal cord compression due to degenerative disorder of spinal column M47.10
--- OUTSIDE RECORDS SUMMARY | 2025-05-06 13:13 | XMS_ITS | Encounter Summary ---
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 Not on file Not on file documented as of this encounter Plan of Treatment Upcoming Encounters Date Type Department Care Team (Late st Contact Info) Description 12/12/2024 Procedure Pass [address] [address] 06/22/2025 2:45 PM EDT Appointment [address] [address] Cony Camilo PA [address] [place] [id number] [email or web address] 06/25/2025 8:30 AM EDT Office Visit [facility] [address] [place] [id number] Jaxon Yang DO [address] [place] [phone] [email or web address] documented as of this encounter Goals Goal [...] EDT ADDENDUM: Addendum: Remote prior mammograms from [facility] were obtained dated 12/05/2020. Upon comparison [...] unspecified documented in this encounter Care Teams Chassis Wirer Relationship Specialty Start Date End Date Cony Camilo PA [address] [place] [id number] [email or web address] PCP - General 12/09/21 documented as of this encounter Additional Source Comments The information contained in this document represents components of the legal health record. It is not the complete legal health record.[facility]
--- OUTSIDE RECORDS SUMMARY | 2025-05-06 13:13 | XMS_ITS | Patient Health Record ---
Author Organization [facility] rajeve Address [address] [place] [address] Care Team Providers Care Guillotine Operator Name Role Phone Cony Camilo Primary Care Provider Laquita Dempsey Unavailable [phone] Danny Tejeda Unavailable [phone] Phani Fragoso Unavailable [phone] Allergies Allergen (clinical drug ingredient) Drug/Non Drug Allergy documented on EMR Reaction Allergy Type Onset Date Status Penicillin rash/hives Drug Allergy Activ e neomycin Neomycin rash Drug Allergy Active cetirizine Cetirizine felt wired Drug Allergy Acti ve erythromycin Erythromycin nausea/vomiting Drug Allergy Active Results Component Value Reference Range Notes COMPREHENSIVE METABOLIC PAN -[id number] Reviewed date:08/19/2024 11:08:35 AM Interpretation: Performing Lab:NL2, [facility] [id number] Nataliia Tenorio Notes/Report: Received Date: NON-FASTING; NON-FASTING; NON-FASTING GLUCOSE 83 65-99 mg/dL Fasting reference interval UREA NITROGEN (BUN) 15 7-25 mg/dL CREATININE 0.74 0.60-1.00 mg/dL EGFR 83 > OR = 60 mL/min/1.73m2 BUN/CREATININE RATIO SEE NOTE: - (calc) Not Reported: BUN and Creatinine are [...] Reviewed date:08/19/2024 11:08:52 AM Interpretation: Performing Lab:NL2, [employer] [facility] [facility] Nataliia Tenorio Notes/Report: Received Date: NON-FASTING; [...] LDL-C. Martin CARRASQUILLO et al. ZARINA. 2013;310(19): 2773-1957 (http://[email or web address]/f [email or web address]) CHOL/HDLC RATIO 1.9 <5.0 (calc) NON HDL CHOLESTEROL 73 <130 mg/dL (calc) For patients with diabetes plus 1 major ASCVD risk factor, treating to a non-HDL-C goal of <100 mg/dL (LDL-C of <70 mg/dL) is considered a therapeutic option. CBC NO DIFF - 1759 Reviewed date:08/19/2024 11:08:42 AM Interpretation: Performing Lab:NL2, [employer] [facility] Nataliia Tenorio Notes/Report: Received Date: NON-FASTING; [...] begun to worsen since [facility] MRI CERVICAL SPINE (NEURO) FOCUS WITHOUT [...] malignant neoplasm of colon (Z12.11) Referral Organization [facility] NO Referring Provider First Name Cony Referring Provider Last Name Ton Referring Provider [facility] ctice Referred Provider [employer] Referred Provider Specialty Gastroentero logy General Notes Radha Guerin 08/01 01:38:52 PM > referral faxed to: [phone] Clinical Notes Provider Name: TRACEY Anderson, Provider , Address1: [address] [facility], Zip: [place], [address], , Referral Priority Routine Reason PT for help developi ng an independent bone building exercise program for her osteoporosis with Philip Fleming Diagnosis 1 Osteoporosis NOS (M8 1.0) Referral Organization [facility] Referring Provider First Name Cony Referring Provider Last Name Ton Referring Provider [facility] ctice Referred Provider Fran Bravo, Re [facility] Referred Provider Specialty PT,OT, SPEEC H General Notes PT referral to [facility] [place] for Christelle to see Philip Fleming, PT for help developing an independent bone building exercise program for her osteoporosis, Radha Guerin 09/26/2024 09:36:47 AM > Referral faxed to: [phone] Clinical Notes Provider Name: Hilda Bravo, [facility] [place], Provider , Address1: [address] [facility], Zip: [place], [address], , Referral Priority Routine Reason for cervical radicul opathy Diagnosis 1 Radiculopathy, cervi can region (M54.12) Referral Organization [facility] Referring Provider First Name Cony Referring Provider Last Name Ton Referring Provider [facility] ctice Referred Provider Bull Kramer [facility]OS Referred Provider Specialty Orthopedic S urgery General Notes Radha Guerin 10/2024 07:19:51 AM > referral faxed to: [phone] Clinical Notes Provider Name: Bull Kramer NEOS, Provider , Provider Speciality: Orthopedic Surgery, Address1: [address] [place] [address], [facility], Zip: [place], [address], , Referral Priority Routine Reason cervical radiculopat hy Diagnosis 1 Radiculopathy, cervi can region (M54.12) Referral Organization [facility] Referring Provider First Name Cony Referring Provider Last Name Ton Referring Provider Speciality Family Lucas ctice Referred Provider Iván Padilla Referred Provider Specialty Neurosurgery General Notes Radha Guerin 11/2024 09:07:15 AM > referral faxed to: [phone] Clinical Notes Provider Name: Ana Padilla, Provider , Address1: [address] [place] [address], Address2: [facility] , [facility], Zip: [place], [address], , Referral Priority Routine Reason for appointments wit h Dr. Benitez Casas to discuss MRI results Diagnosis 1 Radiculopathy, cervi can region (M54.12) Referral Organization [facility] Referring Provider First Name Cony Referring Provider Last Name Ton Referring Provider Speciality Family Lucas ctice Referred Provider [facility] Referred Provider Specialty Orthopedic S urgery General Notes Dr. Benitez Casas, Kimberlee urosurgeon at [facility] in [place], fax: [phone], dx MRI results, opinion, Radha Guerin 05/06/2025 12:21:35 PM > REFERRAL FAXED TO: [phone] Referral Priority Routine Medications Medication SIG (Take, Route, Frequency, Duration) Notes Start Date End Date Status Finasteride 5 MG 1 tab(s) orally every other day for 90 days Active Vitamin D3 50 MCG (1999) 1 tablet orally once a day 2500IUs [...] Status W/U Status Risk Notes Problem Hyperlipidemia (59596158) Hyperlipidemia, unspecified (E78.5) Active confirmed Problem Essential hypertension (97394486) Hypertension, essential (I10) Active confirmed Problem Cataract (953848924) Cataract NOS (H26.9) Active confirmed Problem Cervical radiculopathy (86032364) Radiculopathy, cervical region (M54.12) Active confirmed Problem Osteoporosis (69621961) Osteoporosis NOS (M81.0) Active confirmed Problem Paresthesia (finding) (31006983) Paresthesias (R20.2) Active confirmed Vital Signs Temperature 97.7 degrees Fahrenheit 01/20/2025 Oximetry 98 01/20/2025 Blood pressure diastolic 68 mm Hg 01/20/2025 Height 61.0 in 04/01/2025 Blood pressure systolic 134 mm Hg 01/20/2025 Weight 101.0 lbs 04/01/2025 BMI 19.08 kg/m2 04/01/2025 Encounters Encounter Location Date Provider Diagnosis [address] [address] 01/20/2025 Phani Corriveau Paresthesias R20.[address] [address] 08/11/2024 Cony Camilo Adult physical JÚNIOR L Z00.00 ; Hypertension, essential I10 ; Hyperlipidemia, unspecified E78.5 ; Osteoporosis NOS M81.0 and Encounter for screening for malignant neoplasm of colon Z12.[address] [address] 11/26/2024 Cony Camilo Cataract NOS H26.9 ; Pre-op examination Z01.818 and Hypertension, essential I10 [address] [address] 01/27/2025 Danny Potash Radiculopathy, cervical region M54.12 and Segmental and somatic dysfunction of cervical region M99.[address] [address] 01/29/2025 Danny Potash Radiculopathy, cervical region M54.12 and Segmental and somatic dysfunction of cervical region M99.[address] [address] 02/03/2025 Danny Potash Radiculopathy, cervical region M54.12 and Segmental and somatic dysfunction of cervical region M99.[address] [address] 02/05/2025 Danny Potash Radiculopathy, cervical region M54.12 and Segmental and somatic dysfunction of cervical region M99.[address] [address] 02/10/2025 Danny Potash Radiculopathy, cervical region M54.12 and Segmental and somatic dysfunction of cervical region M99.[address] [address] 02/12/2025 Danny Potash Radiculopathy, cervical region M54.12 and Segmental and somatic dysfunction of cervical region M99.[address] [address] 02/19/2025 Danny Potash Radiculopathy, cervical region M54.12 and Segmental and somatic dysfunction of cervical region M99.[address] [address] 02/24/2025 Danny Potash Radiculopathy, cervical region M54.12 and Segmental and somatic dysfunction of cervical region M99.[address] [address] 02/26/2025 Danny Potash Radiculopathy, cervical region M54.12 and Segmental and somatic dysfunction of cervical region M99.[address] [address] 03/03/2025 Danny Potash Radiculopathy, cervical region M54.12 and Segmental and somatic dysfunction of cervical region M99.[address] [address] 03/17/2025 Danny Potash Radiculopathy, cervical region M54.12 ; Segmental and somatic dysfunction of cervical region M99.01 and Segmental and somatic dysfunction of thoracic region M99.[address] [address] 03/26/2025 Danny Potash Radiculopathy, cervical region M54.12 ; Segmental and somatic dysfunction of cervical region M99.01 and Segmental and somatic dysfunction of thoracic region M99.[address] [address] 04/01/2025 Cony Ton Radiculopathy, cervical region M54.12 [place] [address] [place] [address] 09/25/2024 Cony Camilo [facility] [address] [place] [address] 09/30/2024 Cony Camilo [facility] [address] [place] [address] 04/01/2025 Cony Camilo [place] [address] [place] [address] 05/01/2025 Cony Ton [facility] [address] [place] [address] 06/02/2024 Cony Ton [facility] [address] [place] [address] 12/22/2024 Cony Ton [facility] [address] [address] 12/25/2024 Cony Ton [place] [address] [place] [address] 01/20/2025 Laquita Dempsey [place] [address] [place] [address] 02/26/2025 Cony Ton Radiculopathy, cervical region M54.[address] [address] 02/26/2025 Cony Ton [facility] [address] [address] 02/27/2025 Cony Ton [place] [address] [place] [address] 03/26/2025 Cony Ton [facility] [address] [place] [address] 03/26/2025 Cony Ton [facility] [address] [place] [address] 04/07/2025 Cony Ton [facility] [address] [place] [address] 04/22/2025 Cony Ton [place] [address] [place] [address] 04/23/2025 Laquita Dempsey [place] [address] [place] [address] 04/23/2025 Laquita Dempsey Assessments Encounter Date Diagnosis [...] L cataract 12/11/24 at [facility]). Pt is medically optimized for upcoming procedure. [...] (BILATERAL) 11/2021 Covid-19 PCR (use this one) 08/15/2021 Covid-19 PCR (use this one) 08/19/2021 Covid-19 PCR (use this one) 10/04/2021 Next Appt Details Provider Name:Cony Camilo, 08/12/2025 01:30:00 PM, [address] [place] [address], [phone], Insurance Providers Payer Name Payer Address Payer Phone Subscriber Number Group Number Insured Name Patient Relationship to Insured Coverage Start Date Coverage End Date MEDICARE [address] [facility] [place] [address] [phone] [id number] CHRISTELLE VILLARREAL Self - patient is the insured [facility] SUPP [id number] ALTH [address] [place] [address] [phone] [id number] CHRISTELLE VILLARREAL Self - patient is the insured Medical (General) History Medical History History ICD Code Osteoporosis, bone density M ay 2020, stable; Dr. Yang - will be starting Reclast in Aug Hypertension Hyperlipidemia Sensitive skin R distal radius fx and repair, ORIF, Dr. De Covid19 07/2022 Colonoscopy Oct/Nov 2020, repeat 5 years Surgical History Surgery Date(Month/Year) Cataract surgery for both eyes- Dr. fabiana khoury in [place] 01/2025 Limpoma removal R upper arm- [facility] 06/2022 R wrist fracture @ [facility] 12/23/21
== END 2025-05-06 12:48 | disposition home or self-care (01) ==
LOC: HO.HNS 12:39
PROVIDERS: PCP Physician Assistant; Visit Provider Neurological Surgery
DX: M47.10 Other spondylosis with myelopathy, site unspecified (principal)
CPT/HCPCS: 99212

== ENCOUNTER → 2025-05-06 12:39 | Outpatient (BNVA) | payer MEDICARE, OTHER, SELFPAY | PROVIDERS: PCP Physician Assistant; Visit Provider Neurological Surgery | DX: M47.12 Other spondylosis with myelopathy, cervical region (principal) | CPT/HCPCS: 99212 ==

== ENCOUNTER 2025-07-29 13:24 | Outpatient (AMB) | payer MEDICARE, OTHER, SELFPAY ==
--- OUTSIDE RECORDS SUMMARY | 2025-06-17 06:15 | XMS_ITS ---
Author Organization [facility] ra[facility]ev Address [address] [place] [address] Care Team Providers Care Windows Server Specialist Name Role Phone Cony Camilo Primary Care Provider Laquita Dempsey Unavailable [phone] Allergies Allergen (clinical drug ingredient) Drug/Non Drug Allergy documented on EMR Reaction Allergy Type Onset Date Status erythromycin Erythromycin nausea/vomiting Drug Allergy Active cetirizine Cetirizine felt wired Drug Allergy Acti ve neomycin Neomycin rash Drug Allergy Active Penicillin rash/hives Drug Allergy Activ e REASON FOR VISIT flu, covid Medications Medication SIG (Take, Route, Frequency, Duration) Notes Start Date End Date Status Finasteride 5 MG Tablet 1 tab(s) orally every other day; Duration: 90 days Active Vitamin D3 50 MCG (1999 UT) Tablet 1 tablet orally once a day 2500IUs Active Reclast 5 MG/100ML Solution as directed Intravenous once a yr Active Calcium 600 MG Tablet 1 tablet with meal s Orally once a day unsure of strength Active Magnesium - Capsule as directed Orally once a day unsure of strength Active Losartan Potassium 50 MG Tablet 1 tab(s) orally once a day; Duration: 90 days Active Pravastatin Sodium 20 MG Tablet TAKE 1 TABLET BY MOUTH EVERY DAY FOR 90 DAYS; Duration: 90 Active Immunizations Vaccine Route Administration Date Status Comme nts FLUZONE HIGH DOSE 65+ PURCHASED IM Intramuscular 06/17/2025 Administered COVID VACC 19+ PFIZER PURCHASED IM Intramuscular 06/17/2025 Administered Encounters Encounter Location Date Provider Diagnosis [facility] [address] [address] 06/17/2025 Laquita Dempsey Encounter for immunization Z23 Assessments Encounter Date Diagnosis (ICD Code) Assessment Notes Treatment Notes Treatment Clinical Notes Section Notes 06/17/2025 Encounter for immunization (ICD-10 - Z23) Plan Of Treatment Next Appt Details Provider Name:Cony Camilo, 1 10/12/2024 01:30:00 PM, [address] [place], [address], Progress Notes * NATO VILLARREALB:1945 (80 yo F)Acc No.[id number]:06/17/2025 Progress Note Patient: CHRISTELLE JACOBS Provider: Jonathan Dempsey MD :1945 A ge:80 Y S ex:Female Date:06/17/2025 C #:[id number] Address:[address] [place], [place] [address] Pcp:Cony Camilo Subjective: * Chief Complaints: * F laura, estivenid * Medical History: Osteoporosis, bone density January 2021, stable; Dr. Yang - will be starting Reclast in Aug Hypertension Hyperlipidemia Sensitive skin R distal radius fx and repair, ORIF, Dr. De Covid19 07/2022 Colonoscopy Oct/Nov 2020, repeat 5 years * Medications: T akingMagnesium - Capsule as directed Orally once a day , Notes to Pharmacist: unsure of strengthCalcium 600 MG Tablet 1 tablet with meals Orally once a day , Notes to Pharmacist: unsure of strengthReclast 5 MG/100ML Solution as directed Intravenous once a yr Vitamin D3 50 MCG (1999 UT) Tablet 1 tablet orally once a day , Notes to Pharmacist: 2500IUsPravastatin Sodium 20 MG Tablet TAKE 1 TABLET BY MOUTH EVERY DAY FOR 90 DAYS Losartan Potassium 50 MG Tablet 1 tab(s) orally once a day Finasteride 5 MG Tablet 1 tab(s) orally every other day Medication List reviewed and reconciled with the patientTaking Magnesium - Capsule as directed Orally once a day , Notes to Pharmacist: unsure of strengthTaking Calcium 600 MG Tablet 1 tablet with meals Orally once a day , Notes to Pharmacist: unsure of strengthTaking Reclast 5 MG/100ML Solution as directed Intravenous once a yr Taking Vitamin D3 50 MCG (1999 UT) Tablet 1 tablet orally once a day , Notes to Pharmacist: 2500IUsTaking Pravastatin Sodium 20 MG Tablet TAKE 1 TABLET BY MOUTH EVERY DAY FOR 90 DAYS Taking Losartan Potassium 50 MG Tablet 1 tab(s) orally once a day Taking Finasteride 5 MG Tablet 1 tab(s) orally every other day Medication List reviewed and reconciled with the patient * Allergies: P enicillin: rash/hives - AllergyNeomycin: rash - AllergyCetirizine: felt wired - Side EffectsErythromycin: nausea/vomiting - Side Effects Assessment: * Assessment: 1. E ncounter for immunization - Z23 (Primary) Plan: * Immunizations: FLUZONE HIGH DOSE 65+ PURCHASED : 0.5 mL (Route: Intramuscular) given by Lexy Tucker CMA on Left Deltoid (Encounter for immunization) COVID VACC 19+ PFIZER PURCHASED : 0.3 mL (Route: Intramuscular) given by Lexy Tucker CMA on Left Deltoid (Encounter for immunization) Billing Information: * Visit Code: 32912 Office Visit, Est Pt.NURSE. Care Plan Details* * Electronic signature of Marissa Dempsey MD on 07/29/2025 at 05:08 PM EDT Sign off status: Pending * Provider: Jonathan Dempsey MD Date: 0 06/17/2025 Generated for Manny verdugo/Jorge/Marlin on: 1 05:08 PM EDT
--- NOTE | 2025-07-29 13:34 | A.SPINEOV_ITS ---
Intake Visit Reasons: follow up 3M Intake Note: Ms. Castle is here today for her 3 month F/u. 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 As you know she presented with right cervical radiculopathy. Imaging was worrisome due to the fact of spinal cord compression. Clinically, the patient had no signs of cervical myelopathy and we decided to repeat neurological exam in 3 months. Today the patient states that her symptoms have further improve. She hardly notices the tingling in her right arm anymore. She has extended her activities. A comprehensive neurological exam is intact for motor sensation and reflexes. The patient does not require surgical intervention. She has no limitations. I discussed the signs of cervical myelopathy and told her to return to my clinic if the symptoms occur or if there was a aggravation of her cervical radiculopathy. Thank you for allowing me take care of your patient. I spent 20 minutes in his consult for history, physical exam and answering questions Jose Manuel Sanchez MD, PhD Spine Fellowship Trained Neurosurgeon Director, [facility] Coding Level of Care Code Est Pt Level 3 (57156) Diagnoses Spinal cord compression due to degenerative disorder of spinal column M47.10
--- OUTSIDE RECORDS SUMMARY | 2025-07-29 14:27 | XMS_ITS | Encounter Summary ---
Author Organization [facility] Address [address] [place] [address] Phone Care Team Providers Care Quality Control Systems Manager Name Role Phone Cony Camilo Primary Care Provider [phone] Encounter Details Date Type Department Care Team (Late st Contact Info) Description 07/29/2025 2:27 PM EDT Hospital Encounter [facility] [address] [place] [address] Jaxon Yang DO [address] [place] [address] Social History Tobacco Use Types Packs/Day Years Used Date Smoking Tobacco: Never Passive Smoke Exposure: Never Smokeless Tobacco: Never Alcohol Use Standard [...] file Not on file 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 Not on file Not on file documented as of this encounter Plan of Treatment Upcoming Encounters Date Type Department Care Team (Late st Contact Info) Description 07/29/2025 Procedure Pass [address] [address] 10/05/2025 10:30 AM EST Infusion [address] [address] Jaxon Yang [address] [address] [email or web address] 03/01/2026 11:15 AM EDT Appointment [address] [address] Jaxon Yang [address] [address] [email or web address] 07/05/2026 10:15 AM EDT Appointment [address] [address] Cony Camilo PA [address] [place] [address] [email or web address] 07/29/2026 1:00 PM EDT Office Visit [facility] [address] [place] [address] Jaxon Yang [address] [address] Pending Results Name Type Priority Associated Diagnoses Date /Time 25-OH vitamin D Lab Routine Age-related osteoporosis without current pathological fracture 07/29/2025 2:30 PM EDT Scheduled Orders Name Type Priority Associated Diagnoses Orde r Schedule 25-OH vitamin D Lab Routine Age-related osteoporosis without current pathological fracture As Needed for 1 Occurrences starting 07/29/2025 until 07/29/2025 documented as of this encounter Goals Goal Patient Goal Type Associated Problems Recent Progress Patient-Stated? Author Attending meditation / other stress management classes Lifestyle No Juan Gaviria MD, MPH documented as of this encounter Visit Diagnoses Diagnosis Age-related osteoporosis without current pathological fracture documented in this encounter Care Teams Quality Control Systems Manager Relationship Specialty Start Date End Date Cony Camilo PA [address] [place] [address] [email or web address] PCP - General 12/09/21 documented as of this encounter Additional Source Comments The information contained in this document represents components of the legal health record. It is not the complete legal health record.[facility]
--- OUTSIDE RECORDS SUMMARY | 2025-07-29 17:06 | XMS_ITS | Encounter Summary ---
Author Organization [facility] Address [address] [place] [address] Phone Care Team Providers Care Mining Professionals Name Role Phone Chad Martínez MD Primary Care Provider Cony Camilo Primary Care Provider [phone] Encounter Details Date Type Department Care Team (Late st Contact Info) Description 11/17/2021 Ancillary Orders [facility],Outside Imaging [address] [place] [address] System, Provider Not In, [place] [address] Social History Tobacco Use Types Packs/Day Years Used Date Smoking Tobacco: Never Smokeless Tobacco: Never Alcohol Use Standard Drinks/Week Comments Not Asked 0 (1 standard drink = 0.6 oz pur e alcohol) Comments No Sex and Gender Information Value Date Recorded Sex Assigned at Female 10/08/2017 9:33 AM EST Legal Sex Female 7:56 PM EST Gender Identity Female Sexual Orientation Straight 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- [address] [address] 10/05/2025 10:30 AM EST Infusion [facility] [address] [place] [address] Jaxon Yang DO [address] [place] [address] 03/01/2026 11:15 AM EDT Appointment [facility], Bone Density [address] [address] Jaxon Yang, DO [address] [place] [address] 07/05/2026 10:15 AM EDT Appointment [facility] [address] Cony Camilo PA [address] [place] [address] [email or web address] 07/29/2026 1:00 PM EDT Office Visit [facility] [address] [place] [address] Jaxon Yang, DO [address] [place] [address] [employer] documented as of this encounter Goals Goal Patient Goal Type Associated Problems Recent Progress Patient-Stated? Author Attending meditation / other stress management classes Lifestyle No Juan Gaviria MD, MPH documented as of this encounter Results * Mammogram Outside (No Interpretation) (11/30/2019 12:00 AM EST) Narrative SYSTEMGENERATED, DOCUMENTATION - 11/17/2021 11:03 AM EST This study is for PACS storage only and not for interpretation. us Provider Not In System PhD IMG OUTSIDE IMAGING W /OUT INTERPRETATION Final Result documented in this encounter Visit Diagnoses Not on filedocumented in this encounter Care Teams Mining Professionals Relationship Specialty Start Date End Date Chad Martínez MD [address] [place] [address] [email or web address] PCP - General 04/24/16 2 Cony Camilo PA [address] [place] [address] [email or web address] PCP - General 12/09/21 documented as of this encounter Additional Source Comments The information contained in this document represents components of the legal health record. It is not the complete legal health record.[facility]
--- OUTSIDE RECORDS SUMMARY | 2025-07-29 17:06 | XMS_ITS | Encounter Summary ---
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 Not on file Not on file documented as of this encounter Plan of Treatment Upcoming Encounters Date Type Department Care Team (Late st Contact Info) Description 07/29/2025 Procedure Pass [facility], [facility]- [address] [address] 10/05/2025 10:30 AM EST Infusion [facility] [address] [place] [address] Jaxon Yang DO [address] [place] [address] [email or web address] 03/01/2026 11:15 AM EDT Appointment [facility], Bone Density [address] [address] Jaxon Yang, DO [address] [place] [address] 07/05/2026 10:15 AM EDT Appointment [facility] Mammography[address] [address] Cony Camilo PA [address] [place] [address] [email or web address] 07/29/2026 1:00 PM EDT Office Visit [facility] [address] [place] [address] Jaxon Yang, DO [address] [place] [address] [email or web address] documented as of this encounter Goals Goal Patient Goal Type Associated Problems Recent Progress Patient-Stated? Author Attending meditation / other stress management classes Lifestyle No Juan Gaviria MD, MPH documented as of this encounter Results * Mammogram Outside (No Interpretation) (12/05/2020 12:00 AM EST) Narrative SYSTEMGENERATED, DOCUMENTATION - 11/17/2021 11:02 AM EST This study is for PACS storage only and not for interpretation. us Provider Not In System PhD IMG OUTSIDE IMAGING W /OUT INTERPRETATION Final Result documented in this encounter Visit Diagnoses Not on filedocumented in this encounter Care Teams Custodial Maintenance Worker Relationship Specialty Start Date End Date Chad Martínez MD [address] [place] [address] [email or web address] PCP - General 04/24/16 2 Cony Camilo PA [address] [place] [address] [email or web address] PCP - General 12/09/21 documented as of this encounter Additional Source Comments The information contained in this document represents components of the legal health record. It is not the complete legal health record.[facility]
--- OUTSIDE RECORDS SUMMARY | 2025-07-29 17:06 | XMS_ITS | Encounter Summary ---
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 07/29/2026 1:00 PM EDT Office Visit [facility] [address] [place] [address] Jaxon Yang [address] [address] Scheduled Orders Name Type Priority Associated Diagnoses Orde r Schedule Mammogram Screening (Bilateral) Imaging Routine Breast screening Expected: 07/29/2025, Expires: 07/29/2027 documented as of this encounter Goals Goal Patient Goal Type Associated Problems Recent Progress Patient-Stated? Author Attending meditation / other stress management classes Lifestyle No Juan Gaviria MD, MPH documented as of this encounter Visit Diagnoses Diagnosis Breast screening- Primary Breast screening, unspecified documented in this encounter Care Teams Machine Helper Relationship Specialty Start Date End Date Cony Camilo PA [address] [place] [address] [email or web address] PCP - General 12/09/21 documented as of this encounter Additional Source Comments The information contained in this document represents components of the legal health record. It is not the complete legal health record.[facility]
--- OUTSIDE RECORDS SUMMARY | 2025-07-29 17:06 | XMS_ITS | Encounter Summary ---
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 Not on file documented as of this encounter Plan of Treatment Upcoming Encounters Date Type Department Care Team (Late st Contact Info) Description 07/29/2025 Procedure Pass [facility], [facility]- [address] [address] 10/05/2025 10:30 AM EST Infusion [facility] [address] [place] [address] Jaxon Yang DO 22 [place] [address] 03/01/2026 11:15 AM EDT Appointment [facility], Bone Density [address] [address] Jaxon Yang, DO [address] [place] [address] [email or web address] 07/05/2026 10:15 AM EDT Appointment [facility], Mamm[address] [address] Cony Camilo PA [address] [place] [address] [email or web address] 07/29/2026 1:00 PM EDT Office Visit [facility] [address] [place] [address] Jaxon Yang, DO 22 [place] [address] [email or web address] documented as of this encounter Goals Goal Patient Goal Type Associated Problems Recent Progress Patient-Stated? Author Attending meditation / other stress management classes Lifestyle No Juan Gaviria MD, MPH documented as of this encounter Results * US Breast Outside (No Interpretation) (12/06/2017 12:00 AM EST) Narrative SYSTEMGENERATED, DOCUMENTATION - 11/17/2021 11:00 AM EST This study is for PACS storage only and not for interpretation. us Provider Not In System PhD IMG OUTSIDE IMAGING W /OUT INTERPRETATION Final Result documented in this encounter Visit Diagnoses Not on filedocumented in this encounter Care Teams Lay Up Operator Relationship Specialty Start Date End Date Chad Martínez MD [address] [place] [address] [email or web address] PCP - General 04/24/16 2 Cony Camilo PA [address] [place] [address] [email or web address] PCP - General 12/09/21 documented as of this encounter Additional Source Comments The information contained in this document represents components of the legal health record. It is not the complete legal health record.[facility]
--- OUTSIDE RECORDS SUMMARY | 2025-07-29 17:06 | XMS_ITS | Encounter Summary ---
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 Not on file documented as of this encounter Plan of Treatment Upcoming Encounters Date Type Department Care Team (Late st Contact Info) Description 07/29/[address] [address] 10/05/2025 10:30 AM EST Infusion [facility] [address] [place] [address] Jaxon Yang DO 22 [place] [address] 03/01/2026 11:15 AM EDT Appointment [facility], Bone Density - [address] [address] Trey Jaxon DO [address] [place] [address] [email or web address] 07/05/2026 10:15 AM EDT Appointment [facility], Mammography- [address] [address] Cony Camilo PA [address] [place] [address] [email or web address] 07/29/2026 1:00 PM EDT Office Visit [facility] [address] [place] [address] Trey Jaxon [address] [address] [email or web address] documented as of this encounter Goals Goal Patient Goal Type Associated Problems Recent Progress Patient-Stated? Author Attending meditation / other stress management classes Lifestyle No Juan Gaviria MD, MPH documented as of this encounter Visit Diagnoses Not on filedocumented in this encounter Care Teams Bulk Sausage Casing Tier Off Relationship Specialty Start Date End Date Cony Camilo PA [address] [place] [address] [email or web address] PCP - General 12/09/21 documented as of this encounter Additional Source Comments The information contained in this document represents components of the legal health record. It is not the complete legal health record.[facility]
--- OUTSIDE RECORDS SUMMARY | 2025-07-29 17:06 | XMS_ITS | Encounter Summary ---
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 Not on file documented as of this encounter Plan of Treatment Upcoming Encounters Date Type Department Care Team (Late st Contact Info) Description 07/29/2025 Procedure Pass [address] [address] 10/05/2025 10:30 AM EST Infusion [address] [address] Jaxon Yang [address] [address] 03/01/2026 11:15 AM EDT Appointment [facility] Density [address] [address] Jaxon Yang [address] [address] M: 07/05/2026 10:15 AM EDT Appointment [address] [address] Cony Camilo PA [address] [place] [address] [email or web address] 07/29/2026 1:00 PM EDT Office Visit [facility] [address] [place] [address] Jaxon Yang [address] [address] documented as of this encounter Goals Goal Patient Goal Type Associated Problems Recent Progress Patient-Stated? Author Attending meditation / other stress management classes Lifestyle Juan Myrick MD, MPH documented as of this encounter Results * (ABNORMAL) BI MAMMOGRAM SCREENING WITH TOMOSYNTHESIS WITH CAD (BILATERAL) (02/18/2024 10:06 AM EDT) Anatomical Region Laterality Modality Breast Left, Breast Right, Breast Bilateral Bila teral Mammography 02/20/2024 8:26 AM EDT Addenda Addendum by Aparna Myrick MD on 03/12/2024 7:36 AM EDT ADDENDUM: Addendum: Remote prior mammograms from [facility] were obtained dated 12/05/2020. Upon comparison [...] unspecified documented in this encounter Care Teams Sand Conditioner Machine Relationship Specialty Start Date End Date Cony Camilo PA [address] [place] [address] [email or web address] PCP - General 12/09/21 documented as of this encounter Additional Source Comments The information contained in this document represents components of the legal health record. It is not the complete legal health record.[facility]
--- OUTSIDE RECORDS SUMMARY | 2025-07-29 17:07 | XMS_ITS | Encounter Summary ---
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 file documented as of this encounter Plan of Treatment Upcoming Encounters Date Type Department Care Team (Late st Contact Info) Description 07/29/2025 Procedure Pass [facility], [facility]- [address] [address] 10/05/2025 10:30 AM EST Infusion [facility] [address] [place] [address] Jaxon Yang DO 22 [place] [address] [email or web address] 03/01/2026 11:15 AM EDT Appointment [facility], Bone Density [address] [address] Jaxon Yang, DO [address] [place] [address] 07/05/2026 10:15 AM EDT Appointment [facility] Mammography[address] [address] Cony Camilo PA [address] [place] [address] [email or web address] 07/29/2026 1:00 PM EDT Office Visit [facility] [address] [place] [address] Jaxon Yang, DO [address] [place] [address] [employer] documented as of this encounter Goals Goal Patient Goal Type Associated Problems Recent Progress Patient-Stated? Author Attending meditation / other stress management classes Lifestyle No Juan Gaviria MD, MPH documented as of this encounter Results * Mammogram Outside (No Interpretation) (10/20/2015 12:00 AM EST) Narrative SYSTEMGENERATED, DOCUMENTATION - 11/17/2021 10:54 AM EST This study is for PACS storage only and not for interpretation. us Provider Not In System PhD IMG OUTSIDE IMAGING W /OUT INTERPRETATION Final Result documented in this encounter Visit Diagnoses Not on filedocumented in this encounter Care Teams Care Coordination Manager Relationship Specialty Start Date End Date Chad Martínez MD [address] [place] [address] [email or web address] PCP - General 04/24/16 2 Cony Camilo PA [address] [place] [address] [email or web address] PCP - General 12/09/21 documented as of this encounter Additional Source Comments The information contained in this document represents components of the legal health record. It is not the complete legal health record.[facility]
--- OUTSIDE RECORDS SUMMARY | 2025-07-29 17:07 | XMS_ITS | Encounter Summary ---
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 Not on file documented as of this encounter Plan of Treatment Upcoming Encounters Date Type Department Care Team (Late st Contact Info) Description 07/29/2025 Procedure Pass [facility], [facility]- [address] [address] 10/05/2025 10:30 AM EST Infusion [facility] [address] [place] [address] Jaxon Yang DO 22 [place] [address] 03/01/2026 11:15 AM EDT Appointment [facility], Bone Density [address] [address] Jaxon Yang, DO [address] [place] [address] [email or web address] 07/05/2026 10:15 AM EDT Appointment [facility] Mamm[address] [address] Cony Camilo PA [address] [place] [address] [email or web address] 07/29/2026 1:00 PM EDT Office Visit [facility] [address] [place] [address] Jaxon Yang, DO [address] [place] [address] [email or web address] [email or web address] documented as of this encounter Goals Goal Patient Goal Type Associated Problems Recent Progress Patient-Stated? Author Attending meditation / other stress management classes Lifestyle No Juan Gaviria MD, MPH documented as of this encounter Results * Mammogram Outside (No Interpretation) (09/28/2014 12:00 AM EST) Narrative SYSTEMGENERATED, DOCUMENTATION - 11/17/2021 10:55 AM EST This study is for PACS storage only and not for interpretation. us Provider Not In System PhD IMG OUTSIDE IMAGING W /OUT INTERPRETATION Final Result documented in this encounter Visit Diagnoses Not on filedocumented in this encounter Care Teams Surgical Services Asst Relationship Specialty Start Date End Date Chad Martínez MD [address] [place] [address] [email or web address] PCP - General 04/24/16 2 Cony Camilo PA [address] [place] [address] [email or web address] PCP - General 12/09/21 documented as of this encounter Additional Source Comments The information contained in this document represents components of the legal health record. It is not the complete legal health record.[facility]
--- OUTSIDE RECORDS SUMMARY | 2025-07-29 17:07 | XMS_ITS | Encounter Summary ---
Author Organization 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 Not on file documented as of this encounter Plan of Treatment Upcoming Encounters Date Type Department Care Team (Late Contact Info) Description 07/29/2025 Procedure Pass [facility], [facility]- [address] [address] 10/05/2025 10:30 AM EST Infusion [address] [address] Jaxon Yang DO [address] [place] [address] 03/01/2026 11:15 AM EDT Appointment [facility], Bone Density [address] [address] Jaxon Yang [address] [address] 07/05/2026 10:15 AM EDT Appointment [facility] Mammography[address] [address] Cony Camilo PA [address] [place] [address] [email or web address] 07/29/2026 1:00 PM EDT Office Visit [facility] [address] [place] [address] Jaxon Yang [address] [address] documented as of this encounter Goals Goal Patient Goal Type Associated Problems Recent Progress Patient-Stated? Author Attending meditation / other stress management classes Lifestyle No Juan Gaviria MD, MPH documented as of this encounter Results * BI MAMMOGRAM SCREENING WITH TOMOSYNTHESIS WITH CAD (BILATERAL) (02/13/2022 9:28 AM EDT) Anatomical Region Laterality Modality Breast Left, Breast Right, Breast Bilateral Bila teral Mammography 02/13/2022 9:45 AM EDT Impressions 02/13/2022 9:46 AM EDT No mammographic evidence of malignancy. Recommend routine annual surveillance. BI-RADS CATEGORY: 1 - Negative. DENSITY: The breast tissue is heterogeneously dense, which could obscure a lesion on mammography. Narrative 02/13/2022 9:46 AM EDT 76-year-old female with no current breast symptoms. Comparison made to previous on 12/05/2020 and as far back as 10/20/2015. Interpretation made in conjunction with computer-aided detection and tomosynthesis. The breasts are heterogeneously dense, which may obscure small masses. There are no suspicious masses, areas of architectural distortion, or suspicious clusters of microcalcifications. Procedure Note Benitez Gomez MD - 02/13/2022 76-year-old female with no current breast symptoms. Comparison made toprevious on 12/05/2020 and as far back as 10/20/2015. Interpretation made inconjunction with computer-aided detection and tomosynthesis. The breasts are heterogeneously dense, which may obscure small masses. There are no suspicious masses, areas of architectural distortion, orsuspicious clusters of microcalcifications. IMPRESSION: No mammographic evidence of malignancy. Recommend routine annualsurveillance. BI-RADS CATEGORY: 1 - Negative. DENSITY: The breast tissue is heterogeneously dense, which could obscurea lesion on mammography. Cony WELSH IMG MG EXAMS Final Result documented in this encounter Visit Diagnoses Diagnosis Breast screening- Primary Breast screening, unspecified Breast screening Breast screening, unspecified documented in this encounter Care Teams Microsoft Bi Architect Relationship Specialty Start Date End Date Chad Martínez MD [address] [place] [address] [email or web address] PCP - General 04/24/16 2 Cony Camilo PA [address] [place] [address] [email or web address] PCP - General 12/09/21 documented as of this encounter Additional Source Comments The information contained in this document represents components of the legal health record. It is not the complete legal health record.[facility]
--- OUTSIDE RECORDS SUMMARY | 2025-07-29 17:07 | XMS_ITS | Encounter Summary ---
Author Organization [facility]ly [facility] Address [address] [place] [address] Phone Care Team Providers Care Distribution Coordinator Name Role Phone Chad Martínez MD Primary Care Provider Cony Camilo Primary Care Provider [phone] Encounter Details Date Type Department Care Team (Late st Contact Info) Description 11/17/2021 Ancillary Orders 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, [facility]- [address] [address] 10/05/2025 10:30 AM EST Infusion [facility] [address] [place] [address] Jaxon Yang DO [address] [place] [address] [email or web address] 03/01/2026 11:15 AM EDT Appointment [facility], Bone Density [address] [address] Jaxon Yang, DO [address] [place] [address] [email or web address] 07/05/2026 10:15 AM EDT Appointment [facility] Mammography[address] [address] Cony Camilo PA [address] [place] [address] [email or web address] 07/29/2026 1:00 PM EDT Office Visit [facility] [address] [place] [address] Jaxon Yang, DO [address] [place] [address] [email or web address] documented as of this encounter Goals Goal Patient Goal Type Associated Problems Recent Progress Patient-Stated? Author Attending meditation / other stress management classes Lifestyle No Juan Gaviria MD, MPH documented as of this encounter Results * Mammogram Outside (No Interpretation) (10/24/2016 12:00 AM EST) Narrative SYSTEMGENERATED, DOCUMENTATION - 11/17/2021 10:54 AM EST This study is for PACS storage only and not for interpretation. us Provider Not In System PhD IMG OUTSIDE IMAGING W /OUT INTERPRETATION Final Result documented in this encounter Visit Diagnoses Not on filedocumented in this encounter Care Teams Distribution Coordinator Relationship Specialty Start Date End Date Chad Martínez MD [address] [place] [address] [email or web address] PCP - General 04/24/16 2 Cony Camilo PA [address] [place] [address] [email or web address] PCP - General 12/09/21 documented as of this encounter Additional Source Comments The information contained in this document represents components of the legal health record. It is not the complete legal health record.[facility]
--- OUTSIDE RECORDS SUMMARY | 2025-07-29 17:07 | XMS_ITS | Encounter Summary ---
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 Not on file Not on file documented as of this encounter Plan of Treatment Upcoming Encounters Date Type Department Care Team (Late st Contact Info) Description 07/29/[address] [place] [address] 10/05/2025 10:30 AM EST Infusion [facility] [address] [place] [address] Jaxon Yang [address] [place] [address] 03/01/2026 11:15 AM EDT Appointment [facility], Bone Density - [address] [address] Jaxon Yang [address] [address] 07/05/2026 10:15 AM EDT Appointment [facility], Mammography- [address] [address] Cony Camilo PA [address] [place] [address] [email or web address] 07/29/2026 1:00 PM EDT Office Visit [facility] [address] [place] [address] Jaxon Yang, [address] [address] [email or web address] documented as of this encounter Goals Goal Patient Goal Type Associated Problems Recent Progress Patient-Stated? Author Attending meditation / other stress management classes Lifestyle No Juan Gaviria MD, MPH documented as of this encounter Visit Diagnoses Not on filedocumented in this encounter Care Teams Scaler Packer Relationship Specialty Start Date End Date Cony Camilo PA [address] [place] [address] [email or web address] PCP - General 12/09/21 documented as of this encounter Additional Source Comments The information contained in this document represents components of the legal health record. It is not the complete legal health record.[facility]
--- OUTSIDE RECORDS SUMMARY | 2025-07-29 17:07 | XMS_ITS | Encounter Summary ---
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 Not on file documented as of this encounter Plan of Treatment Upcoming Encounters Date Type Department Care Team (Late st Contact Info) Description 07/29/2025 Procedure Pass [facility], [facility]- [address] [address] 10/05/2025 10:30 AM EST Infusion [facility] [address] [place] [address] Jaxon Yang DO [address] [place] [address] [email or web address] 03/01/2026 11:15 AM EDT Appointment [facility], Bone Density [address] [address] Jaxon Yang, DO [address] [place] [address] [email or web address] 07/05/2026 10:15 AM EDT Appointment [facility] Mammography[address] [address] Cony Camilo PA [address] [place] [address] [email or web address] 07/29/2026 1:00 PM EDT Office Visit [facility] [address] [place] [address] Jaxon Yang, DO [address] [place] [address] [email or web address] documented as of this encounter Goals Goal Patient Goal Type Associated Problems Recent Progress Patient-Stated? Author Attending meditation / other stress management classes Lifestyle No Juan Gaviria MD, MPH documented as of this encounter Results * Mammogram Outside (No Interpretation) (10/31/2018 12:00 AM EST) Narrative SYSTEMGENERATED, DOCUMENTATION - 11/17/2021 10:56 AM EST This study is for PACS storage only and not for interpretation. us Provider Not In System PhD IMG OUTSIDE IMAGING W /OUT INTERPRETATION Final Result documented in this encounter Visit Diagnoses Not on filedocumented in this encounter Care Teams Bar Hostess Relationship Specialty Start Date End Date Chad Martínez MD [address] [place] [address] [email or web address] PCP - General 04/24/16 2 Cony Camilo PA [address] [place] [address] [email or web address] PCP - General 12/09/21 documented as of this encounter Additional Source Comments The information contained in this document represents components of the legal health record. It is not the complete legal health record.[facility]
--- OUTSIDE RECORDS SUMMARY | 2025-07-29 17:07 | XMS_ITS | Patient Health Record ---
Author Organization [facility] rajeev Address [address] [place] [address] Care Team Providers Care Operations Dispatcher Name Role Phone Cony Camilo Primary Care Provider [phone] Laquita Dempsey Unavailable [phone] Kendal Aponte Unavailable [phone] Danny Tejeda Unavailable [phone] Phani Fragoso Unavailable [phone] Allergies Allergen (clinical drug ingredient) Drug/Non Drug Allergy documented on EMR Reaction Allergy Type Onset Date Status erythromycin Erythromycin nausea/vomiting Drug Allergy Active cetirizine Cetirizine felt wired Drug Allergy Acti ve neomycin Neomycin rash Drug Allergy Active Penicillin rash/hives Drug Allergy Activ e Results Component Value Reference Range Flag Notes BI MAMMOGRAM SCREENING WITH TOMOSYNTHESIS WITH CAD (BILATERAL) (Not yet reviewed by provider) Interpretation: Performing Lab: Notes/Report: BI MAMMOGRAM SCREENING WITH TOMOSYNTHESIS WITH CAD (BILATERAL) Additional patient information: Screening. COMPARISON: Comparison is made with relevant prior imaging. Breast composition: The breasts are heterogeneously dense, which may obscure small masses. FINDINGS: No abnormal masses, suspicious calcifications, or other significant findings are identified mammographically in either breast. Asymmetry in the slight inner posterior right breast is unchanged from 10/31/2018. IMPRESSION: No mammographic evidence of malignancy in either breast. Annual screening mammography is recommended. BI-RADS 2 BENIGN The patient will be notified of the results and recommendations. Interpreted by: Ori Ward MD Signed by: Ori Ward MD 07/01/25 Final result No new concerns. Last screenin02/18/24, BR 0. Right breast diagnotic: BR 1. [facility] CBC NO DIFF - 1759 Reviewed date:08/19/2024 11:08:42 AM Interpretation: Performing Lab:Primary Data, [employer] [facility] HospitalRunfaces[address] [place], [place] [address] Nataliia Tenorio Notes/Report: Received Date: NON-FASTING; NON-FASTING; NON-FASTING WHITE BLOOD CELL COUNT 5.7 3.8-10.8 Thousand/uL N RED BLOOD CELL COUNT 4.12 3.80-5.10 Million/uL N HEMOGLOBIN 13.2 11.7-15.5 g/dL N HEMATOCRIT 40.6 35.0-45.0 % N MCV 98.5 80.0-100.0 fL N MCH 32.0 27.0-33.0 pg N MCHC 32.5 32.0-36.0 g/dL N For adults, a slight decrease in the calculated MCHC value (in the range of 30 to 32 g/dL) is most likely not clinically significant; however, it should be interpreted with caution in correlation with other red cell parameters and the patient's clinical condition. RDW 13.1 11.0-15.0 % N PLATELET COUNT 254 140-400 Thousand/uL N MPV 11.2 7.5-12.5 fL N LIPID PANEL Reviewed date:08/19/2024 11:08:52 AM Interpretation: Performing Lab:Primary Data, [employer] [facility] HospitalPager[address] Nataliia Tenorio Notes/Report: Received Date: NON-FASTING; NON-FASTING; NON-FASTING CHOLESTEROL, TOTAL 158 <200 mg/dL N HDL CHOLESTEROL 85 > OR = 50 mg/dL N TRIGLYCERIDES 52 <150 mg/dL N LDL-CHOLESTEROL 60 N Reference range: <100 Desirable range <100 mg/dL for primary prevention; <70 mg/dL for patients with CHD or diabetic patients with > or = 2 CHD risk factors. LDL-C is now calculated using the -Rosenberg calculation, which is a validated novel method providing better accuracy than the Friedewald equation in the estimation of LDL-C. SS et al. ZARINA. 2013;310(19): 4297-2843 (http://education.[employer].Fortisphere/faq/FAQ 164) CHOL/HDLC RATIO 1.9 <5.0 (calc) N NON HDL CHOLESTEROL 73 <130 mg/dL (calc) N For patients with diabetes plus 1 major ASCVD risk factor, treating to a non-HDL-C goal of <100 mg/dL (LDL-C of <70 mg/dL) is considered a therapeutic option. COMPREHENSIVE METABOLIC PAN -[id number] Reviewed date:08/19/2024 11:08:35 AM Interpretation: Performing Lab:NL2, [employer] [facility] [address] Nataliia Tenorio Notes/Report: Received Date: NON-FASTING; NON-FASTING; NON-FASTING GLUCOSE 83 65-99 mg/dL N Fasting reference interval UREA NITROGEN (BUN) 15 7-25 mg/dL N CREATININE 0.74 0.60-1.00 mg/dL N EGFR 83 > OR = 60 mL/min/1.73m2 N BUN/CREATININE RATIO SEE NOTE: 6-22 (calc) Not Reported: BUN and Creatinine are within reference range. SODIUM 134 135-146 mmol/L L POTASSIUM 4.6 3.5-5.3 mmol/L N CHLORIDE 99 98-110 mmol/L N CARBON DIOXIDE 30 20-32 mmol/L N CALCIUM 9.2 8.6-10.4 mg/dL N PROTEIN, TOTAL 6.4 6.1-8.1 g/dL N ALBUMIN 4.5 3.6-5.1 g/dL N GLOBULIN 1.9 1.9-3.7 g/dL (calc) N ALBUMIN/GLOBULIN RATIO 2.4 1.0-2.5 (calc) N BILIRUBIN, TOTAL 0.9 0.2-1.2 mg/dL N ALKALINE PHOSPHATASE 49 37-153 U/L N AST 15 10-35 U/L N ALT 9 6-29 U/L N Rapid Strep Reviewed date:07/23/2025 01:37:49 PM Interpretation:Negative Performing Lab: Notes/Report: Negative Streptococcus Group A Cultur e ([facility]) Reviewed date:07/26/2025 06:18:45 AM Interpretation: Performing Lab:NL2, [employer] [facility] [id number] [facility] Nataliia Tenorio Notes/Report: Received Date: [id number] NON-FASTING FASTING:UNKNOWN FASTING: UNKNOWN STREPTOCOCCUS, GROUP A CULTURE SEE NOTE STREPTOCOCCUS, GROUP A CULTURE Micro Number: [id number] Test Status: Final Specimen Source: Throat Specimen Quality: Adequate Result: No group A Streptococcus isolated MRI CERVICAL SPINE (NEURO) F OCUS WITHOUT [...] begun to worsen since [facility] Reason For Referral Reason repeat colonoscopy d ue 2024, h/o polyps, redundant colon - pt would like to discuss with MD prior to considering repeat colonoscopy Diagnosis 1 Encounter for screen ing for malignant neoplasm of colon (Z12.11) Referral Organization [facility] Referring Provider First Name Cony Referring Provider Last Name Ton Referring Provider Speciality Physician Live Games Dealer Referred Provider TRACEY Simms Referred Provider Specialty Gastroentero logy General Notes Radha Gurein 08/01 01:38:52 PM > referral faxed to: [phone] Clinical Notes Provider Name: TRACEY Anderson, Provider , Address1: [address] [facility], Zip: [place], [address], , Referral Priority Routine Reason PT for help developi ng an independent bone building exercise program for her osteoporosis with Philip Fleming Diagnosis 1 Osteoporosis NOS (M8 1.0) Referral Organization [facility] Referring Provider First Name Cony Referring Provider Last Name Ton Referring Provider Speciality Physician Live Games Dealer Referred Provider Fran Bravo, [facility] [place] Referred Provider Specialty PT,OT, SPEEC H General Notes PT referral to [facility] [place] for Christelle to see Philip Fleming, PT for help developing an independent bone building exercise program for her osteoporosis, Radha Guerin 09/26/2024 09:36:47 AM > Referral faxed to: [phone] Clinical Notes Provider Name: Hilda Bravo, [facility] [place], Provider , Address1: [address] [facility], Zip: [place], [address], , Referral Priority Routine Reason for cervical radicul opathy Diagnosis 1 Radiculopathy, cervi ashley region (M54.12) Referral Organization [facility] NO Referring Provider First Name Cony Referring Provider Last Name Ton Referring Provider Speciality Physician Live Games Dealer Referred Provider Bull Kramer NEOS Referred Provider Specialty Orthopedic S urgery General Notes Radha Guerin 10/2024 07:19:51 AM > referral faxed to: [phone] Clinical Notes Provider Name: Bull Kramer NEOS, Provider , Provider Speciality: Orthopedic Surgery, Address1: [address] [place] [address], [facility], Zip: [place], [address], , Referral Priority Routine Reason cervical radiculopat hy Diagnosis 1 Radiculopathy, cervi ashley region (M54.12) Referral Organization [facility] NO Referring Provider First Name Cony Referring Provider Last Name Ton Referring Provider Speciality Physician Live Games Dealer Referred Provider Iván Padilla Referred Provider Specialty Neurosurgery General Notes Radha Guerin 11/2024 09:07:15 AM > referral faxed to: [phone] Clinical Notes Provider Name: Ana Padilla, Provider , Address1: [address] [place] [address], Address2: [facility] , [facility], Zip: [place], [address], , Referral Priority Routine Reason for appointments wit h Dr. Benitez Casas to discuss MRI results Diagnosis 1 Radiculopathy, cervi ashley region (M54.12) Referral Organization [facility] NO Referring Provider First Name Cony Referring Provider Last Name Ton Referring Provider Speciality Physician Live Games Dealer Referred Provider [facility] Referred Provider Specialty Orthopedic S urgery General Notes Dr. Benitez Casas, Kimberlee u[facility]urgeon at [facility] in [place], fax: [phone], dx MRI results, opinion, Radha Guerin 05/06/2025 12:21:35 PM > REFERRAL FAXED TO: [phone] Referral Priority Routine Medications Medication SIG (Take, Route, Frequency, Duration) Notes Start Date End Date Status Calcium 600 MG Tablet 1 tablet with meal s Orally once a day unsure of strength Active Magnesium - Capsule as directed Orally once a day unsure of strength Active Vitamin D3 50 MCG (2000 UT) Tablet 1 tablet orally once a day 2500IUs Active Reclast 5 MG/100ML Solution as directed Intravenous once a yr Active Losartan Potassium 50 MG Tablet 1 tab(s) orally once a day; Duration: 90 days Active Pravastatin Sodium 20 MG Tablet TAKE 1 TABLET BY MOUTH EVERY DAY FOR 90 DAYS; Duration: 90 Active Finasteride 5 MG Tablet 1 tab(s) orally every other day; Duration: 90 days Active Immunizations Vaccine Route Administration Date Status Comme nts COVID HISTORY SPIKEVAX 12+ MODERNA Unknown 12/26/2023 Administered COVID HISTORY SPIKEVAX 12+ MODERNA Unknown 06/09/2024 Administered Covid Vac Bivalent Pfizer (history) 12+ Unknown 06/19/2022 Administered COVID VACC 12+ MODERNA Unknown 06/20/2023 Administered COVID VACC 19+ PFIZER PURCHASED IM Intramuscular 06/17/2025 Administered Covid Vaccine Booster (Moderna), History Unknown 08/01/2021 Administered Covid Vaccine Booster (Moderna), History Unknown 01/16/2022 Administered COVID-19 Vaccine (Moderna), History Unknown 11/22/2020 Administered COVID-19 Vaccine (Moderna), History Unknown 12/20/2020 Administered Flu Vaccine; History Unknown 08/17/2013 Administered Flu Vaccine; History Unknown 07/23/2015 Administered Flu Vaccine; History Unknown 08/14/2017 Administered Flu Vaccine; History Unknown 06/25/2018 Administered Flu Vaccine; History Unknown 07/16/2019 Administered Flu Vaccine; History Unknown 07/13/2020 Administered Flu Vaccine; History Unknown 06/11/2023 Administered FLUZONE HIGH DOSE 65+ PURCHASED IM Intramuscular 07/04/2021 Administered FLUZONE HIGH DOSE 65+ PURCHASED IM Intramuscular 06/17/2025 Administered Fluzone High Dose; HISTORY Unknown 06/09/2024 Administe red Hep A Vaccine; History Unknown 03/31/2014 Administered Hep A Vaccine; History Unknown 12/08/2014 Administered IPV Vaccine; History Unknown 03/31/2014 Administered pneumovax vaccine history Unknown 11/14/2012 Administer ed Prevnar 13 History Unknown 12/08/2014 Administered RSV VACC HISTORY ADULT Unknown 06/09/2024 Administered rubella vaccine (history) Unknown 11/14/1991 Administer ed Shingrix, history Unknown 02/27/2018 Administered Shingrix, history Unknown 07/30/2018 Administered TDAP history Unknown 02/24/2012 Administered TDAP history Unknown 09/10/2024 Administered Social History Tobacco Use: Social History Observation Description Date Details (start date - stop date) Never Smoker NA - NA Social History Social History Social Info Question Answer Notes Smoking Smart Form: Are you a: nonsmoker Smoking: Second Hand Smoke: no Additional Details Category Social Info Options Details Social History 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, [employer]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 Exercise: walking 1 mile/d ay, joined [employer], swimming Marital Status: Children: son lives in [facility] torrilyn lives in [facility] with Philip Cabrera Ed: [employer] from [employer] Notes: Nutrition: vegetarian mostly , eats [...] Status W/U Status Risk Notes Problem Hyperlipidemia (37055675) Hyperlipidemia, unspecified (E78.5) Active confirmed Problem Essential hypertension (26892943) Hypertension, essential (I10) Active confirmed Problem Cataract (061962985) Cataract NOS (H26.9) Active confirmed Problem Cervical radiculopathy (47976438) Radiculopathy, cervical region (M54.12) Active confirmed Problem Osteoporosis (28350288) Osteoporosis NOS (M81.0) Active confirmed Problem Paresthesia (finding) (45295643) Paresthesias (R20.2) Active confirmed Vital Signs Temperature 96.9 degrees Fahrenheit 07/23/2025 Oximetry 96 07/23/2025 Blood pressure diastolic 88 mm Hg 07/23/2025 Height 61.0 in 04/01/2025 Blood pressure systolic 118 mm Hg 07/23/2025 Weight 103.8 lbs 07/23/2025 BMI 19.08 kg/m2 04/01/2025 Encounters Encounter Location Date Provider Diagnosis [address] [address] 01/20/2025 Phani Fragoso Paresthesias R20.[address] [address] 06/17/2025 Laquita Dempsey Encounter for immunization Z23 [address] [address] 08/11/2024 Cony Ton Adult physical NORMAL Z00.00 ; Hypertension, essential I10 ; Hyperlipidemia, unspecified E78.5 ; Osteoporosis NOS M81.0 and Encounter for screening for malignant neoplasm of colon Z12.[address] [address] 11/26/2024 Cony Ton Cataract NOS H26.9 ; Pre-op examination Z01.818 and Hypertension, essential I10 [address] [address] 01/27/2025 Dnany Potash Radiculopathy, cervical region M54.12 and Segmental and somatic dysfunction of cervical region M99.[address] [address] 01/29/2025 Danny Potash Radiculopathy, cervical region M54.12 and Segmental and somatic dysfunction of cervical region M99.[address] [address] 02/03/2025 Danny Potash Radiculopathy, cervical region M54.12 and Segmental and somatic dysfunction of cervical region M99.[address] [address] 02/05/2025 Danny Potash Radiculopathy, cervical region M54.12 and Segmental and somatic dysfunction of cervical region M99.[address] [address] 02/10/2025 Danny Potash Radiculopathy, cervical region M54.12 and Segmental and somatic dysfunction of cervical region M99.[address] [address] 02/12/2025 Danny Potash Radiculopathy, cervical region M54.12 and Segmental and somatic dysfunction of cervical region M99.[address] [address] 02/19/2025 Danny Potash Radiculopathy, cervical region M54.12 and Segmental and somatic dysfunction of cervical region M99.[address] [address] 02/24/2025 Danny Potash Radiculopathy, cervical region M54.12 and Segmental and somatic dysfunction of cervical region M99.[address] [address] 02/26/2025 Danny Potash Radiculopathy, cervical region M54.12 and Segmental and somatic dysfunction of cervical region M99.[address] [address] 03/03/2025 Danny Potash Radiculopathy, cervical region M54.12 and Segmental and somatic dysfunction of cervical region M99.[address] [address] 03/17/2025 Danny Potash Radiculopathy, cervical region M54.12 ; Segmental and somatic dysfunction of cervical region M99.01 and Segmental and somatic dysfunction of thoracic region M99.02 [facility] [address] [place] [address] 03/26/2025 Danny Tejeda Radiculopathy, cervical region M54.12 ; Segmental and somatic dysfunction of cervical region M99.01 and Segmental and somatic dysfunction of thoracic region M99.[address] [address] 04/01/2025 Cony Ton Radiculopathy, cervical region M54.[address] [address] 07/23/2025 Kendal Aponte Sore throat J02.9 and Other forms of stomatitis K12.1 [place] [address] [place] [address] 09/25/2024 Cony Ton [place] [address] [place] [address] 09/30/2024 Cony Ton [facility] [address] [place] [address] 04/01/2025 Cony Ton [facility] [address] [place] [address] 05/01/2025 Cony Ton [place] [address] [place] [address] [address]25 Cony Ton [address] [address] 12/22/2024 Cony Ton [facility] [address] 12/25/2024 Cony Ton [facility] [address] [place] [address] 01/20/2025 Laquita [facility] [address] [place] [address] 02/26/2025 Cony Ton Radiculopathy, cervical region M54.[address] [address] 02/26/2025 Cony Ton [facility] [address] [address] 02/27/2025 Cony Ton [facility] [address] [place] [address] 03/26/2025 Cony Ton [facility] [address] [place] [address] 03/26/2025 Cony Ton [facility] [address] [place] [address] 04/07/2025 Cony Ton [facility] [address] [place] [address] 04/22/2025 Cony Ton [place] [address] [place] [address] 04/23/2025 Laquita Dempsey [place] [address] [place] [address] 04/23/2025 Laquita Dempsey [facility] [address] [place] [address] 05/08/2025 Cony Camilo Assessments Encounter Date Diagnosis (ICD Code) Assessment [...] when to f/up. Pt verbalizes good understanding. 06/17/2025 Encounter for immunization (ICD-10 - Z23) 08/11/2024 Hypertension, essential (ICD-10 - I10) BP well controlled, continue current med regimen, check labs. 08/11/2024 Adult physical NORMAL (ICD-10 - Z00.00) Mammo UTD. Due for repeat colonoscopy next year. Nutrition/exerc ise. Check labs. Labia with mild erythema and excoriation- no signs c/w lichen sclerosus- will monitor for now. 11/26/2024 Cataract NOS (ICD-10 - H26.9) Has upcoming cataract surgery with Dr. Rosen (R cataract 12/04/24, L cataract 12/11/24 at [facility]). Pt is medically optimized for upcoming procedure. [...] eval her symptoms and interpret MRI results. 07/23/2025 Other forms of stomatitis (ICD-10 - K12.1) exam consistent with aphthous ulcer. advised cont supportive care, contact office for worsening/pr n. 07/23/2025 Sore throat (ICD-10 - J02.9) 02/26/2025 Radiculopathy, cervical region (ICD-10 - M54.12) 03/03/2025 Radiculopathy, cervical region (ICD-10 - M54.12) [...] symptoms and lack of hard neurological findings. 11/26/2024 Hypertension, essential (ICD-10 - I10) BP [...] and lack of hard neurological findings. 08/11/2024 Hyperlipidemia, unspecified (ICD-10 - E78.5) On statin, check labs. 08/11/2024 Osteoporosis NOS (ICD-10 - M81.0) On [...] PANEL 01/09/2022 BI MAMMOGRAM DIAGNOSTIC (BILATERAL) 11/2021 BI MAMMOGRAM SCREENING WITH TOMOSYNTHESI S WITH CAD (BILATERAL) 07/01/2025 Covid-19 PCR (use this one) 08/15/2021 Covid-19 PCR (use this one) 08/19/2021 Covid-19 PCR (use this one) 10/04/2021 Next Appt Details Provider Name:Cony Camilo, 1 10/12/2024 01:30:00 PM, [address] [place], [address], Insurance Providers Payer Name Payer Address Payer Phone Subscriber Number Group Number Insured Name Patient Relationship to Insured Coverage Start Date Coverage End Date MEDICARE [address] [place] [phone] [id number] CHRISTELLE VILLARREAL Self - patient is the insured [facility] SUPP [id number] ALTH [address] [place] [address] [id number] CHRISTELLE VILLARREAL Self - patient is the insured Medical (General) History Medical History History ICD Code Osteoporosis, bone density M ay 2020, stable; Dr. Yang - will be starting Reclast in Aug Hypertension Hyperlipidemia Sensitive skin R distal radius fx and repair, ORIF, Dr. Santino [email or web address] 07/2022 Colonoscopy Oct/Nov 2020, repeat 5 years Surgical History Surgery Date(Month/Year) R wrist fracture @ [facility] 12/23/21 Limpoma removal R upper arm- [facility] 06/2022 Cataract surgery for both eyes- Dr. fabiana khoury in [place] 01/2025
--- OUTSIDE RECORDS SUMMARY | 2025-07-29 17:07 | XMS_ITS | Encounter Summary ---
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 Please contact and advise. Central Support Waste Machine Tender (Please do not reply to this user; this inbox is not monitored.) Thank you. documented in this encounter Plan of Treatment Upcoming Encounters Date Type Department Care Team (Late st Contact Info) Description 07/29/2025 Procedure Pass [address] [address] 10/05/2025 10:30 AM EST Infusion [address] [address] Jaxon Yang [address] [address] 03/01/2026 11:15 AM EDT Appointment [facility] Bone Density - [address] [address] Jaxon Yang [address] [address] 07/05/2026 10:15 AM EDT Appointment [address] [address] Cony Camilo PA [address] [place] [address] [email or web address] 07/29/2026 1:00 PM EDT Office Visit [facility] [address] [place] [address] Jaxon Yang [address] [address] documented as of this encounter Goals Goal Patient Goal Type Associated Problems Recent Progress Patient-Stated? Author Attending meditation / other stress management classes Lifestyle No Juan Gaviria MD, MPH documented as of this encounter Visit Diagnoses Not on filedocumented in this encounter Care Teams Certified Welding Inspector Relationship Specialty Start Date End Date Cony Camilo PA [address] [place] [id number] [email or web address] PCP - General 12/09/21 documented as of this encounter Additional Source Comments The information contained in this document represents components of the legal health record. It is not the complete legal health record.[facility]
--- OUTSIDE RECORDS SUMMARY | 2025-07-29 17:07 | XMS_ITS | Encounter Summary ---
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 Not on file documented as of this encounter Plan of Treatment Upcoming Encounters Date Type Department Care Team (Late Contact Info) Description 07/29/2025 Procedure Pass [facility], [address] [address] 10/05/2025 10:30 AM EST Infusion [facility] [address] [address] Jaxon Yang DO [address] [place] [address] 03/01/2026 11:15 AM EDT Appointment [facility], Bone Density [address] [address] Jaxon Yang DO [address] [place] [address] 07/05/2026 10:15 AM EDT Appointment [facility] Mammography[address] [address] Cony Camilo PA [address] [place] [address] [email or web address] 07/29/2026 1:00 PM EDT Office Visit [facility] [address] [place] [address] Jaxon Yang [address] [address] [email or web address] documented as of this encounter Goals Goal Patient Goal Type Associated Problems Recent Progress Patient-Stated? Author Attending meditation / other stress management classes Lifestyle No Juan Gaviria MD, MPH documented as of this encounter Visit Diagnoses Not on filedocumented in this encounter Care Teams Front Office Associate Relationship Specialty Start Date End Date Chad Martínez MD [address] [place] [address] [email or web address] PCP - General 04/24/16 2 Cony Camilo PA [address] [place] [address] [email or web address] PCP - General 12/09/21 documented as of this encounter Additional Source Comments The information contained in this document represents components of the legal health record. It is not the complete legal health record.[facility]
--- OUTSIDE RECORDS SUMMARY | 2025-07-29 17:07 | XMS_ITS | Encounter Summary ---
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 file documented as of this encounter Plan of Treatment Upcoming Encounters Date Type Department Care Team (Late st Contact Info) Description 07/29/2025 Procedure Pass [facility], [facility]- [address] [address] 10/05/2025 10:30 AM EST Infusion [facility] [address] [place] [address] Jaxon Yang DO [address] [place] [address] 03/01/2026 11:15 AM EDT Appointment [facility], Bone Density [address] [address] Jaxon Yang, DO [address] [place] [address] [email or web address] 07/05/2026 10:15 AM EDT Appointment [facility] [address]amm[address] [address] Cony Camilo PA [address] [place] [address] [email or web address] 07/29/2026 1:00 PM EDT Office Visit [facility] [address] [place] [address] Jaxon Yang, DO [address] [place] [address] [email or web address] documented as of this encounter Goals Goal Patient Goal Type Associated Problems Recent Progress Patient-Stated? Author Attending meditation / other stress management classes Lifestyle No Juan Gaviria MD, MPH documented as of this encounter Results * Mammogram Outside (No Interpretation) (10/30/2017 12:00 AM EST) Narrative SYSTEMGENERATED, DOCUMENTATION - 11/17/2021 10:57 AM EST This study is for PACS storage only and not for interpretation. us Provider Not In System PhD IMG OUTSIDE IMAGING W /OUT INTERPRETATION Final Result documented in this encounter Visit Diagnoses Not on filedocumented in this encounter Care Teams Paralegals Relationship Specialty Start Date End Date Chad Martínez MD [address] [place] [address] [email or web address] PCP - General 04/24/16 2 Cony Camilo PA [address] [place] [address] [email or web address] PCP - General 12/09/21 documented as of this encounter Additional Source Comments The information contained in this document represents components of the legal health record. It is not the complete legal health record.[facility]
--- OUTSIDE RECORDS SUMMARY | 2025-07-29 17:08 | XMS_ITS | Encounter Summary ---
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 Not on file documented as of this encounter Plan of Treatment Upcoming Encounters Date Type Department Care Team (Late st Contact Info) Description 07/29/2025 Procedure Pass [address] [place] [address] 10/05/2025 10:30 AM EST Infusion [facility] [address] [place] [address] Jaxon Yang [address] [place] [address] 03/01/2026 11:15 AM EDT Appointment [facility], Bone Density - [address] [address] Jaxon Yang [address] [address] 07/05/2026 10:15 AM EDT Appointment [facility], Mammography- [address] [address] Cony Camilo PA [address] [place] [address] [email or web address] 07/29/2026 1:00 PM EDT Office Visit [facility] [address] [place] [address] Jaxon Yang, [address] [address] documented as of this encounter Goals Goal Patient Goal Type Associated Problems Recent Progress Patient-Stated? Author Attending meditation / other stress management classes Lifestyle No Juan Gaviria MD, MPH documented as of this encounter Visit Diagnoses Not on filedocumented in this encounter Care Teams Biological Plant Operator Relationship Specialty Start Date End Date Cony Camilo PA [address] [place] [address] [email or web address] PCP - General 12/09/21 documented as of this encounter Additional Source Comments The information contained in this document represents components of the legal health record. It is not the complete legal health record.[facility]
--- OUTSIDE RECORDS SUMMARY | 2025-07-29 17:08 | XMS_ITS | Encounter Summary ---
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 Not on file documented as of this encounter Plan of Treatment Upcoming Encounters Date Type Department Care Team (Late st Contact Info) Description 07/29/[address] [address] 10/05/2025 10:30 AM EST Infusion [facility] [address] [place] [address] Jaxon Yang DO [address] [place] [address] [email or web address] 03/01/2026 11:15 AM EDT Appointment [facility], Bone Density [address] [address] Jaxon Yang, [address] [place] [address] 07/05/2026 10:15 AM EDT Appointment [facility], [address]amm[address] [address] Cony Camilo PA [address] [place] [address] [email or web address] 07/29/2026 1:00 PM EDT Office Visit [facility] [address] [place] [address] Jaxon Yang, [address] [place] [address] [email or web address] documented as of this encounter Goals Goal Patient Goal Type Associated Problems Recent Progress Patient-Stated? Author Attending meditation / other stress management classes Lifestyle No Juan Gaviria MD, MPH documented as of this encounter Visit Diagnoses Not on filedocumented in this encounter Care Teams Environmental Studies Department Chair Relationship Specialty Start Date End Date Chad Martínez MD [address] [place] [address] [email or web address] PCP - General 04/24/16 2 Cony Camilo PA [address] [place] [address] [email or web address] PCP - General 12/09/21 documented as of this encounter Additional Source Comments The information contained in this document represents components of the legal health record. It is not the complete legal health record.[facility]
--- OUTSIDE RECORDS SUMMARY | 2025-07-29 17:08 | XMS_ITS | Clinical Summary ---
Author Organization [facility] Address [address] [place] [phone] Phone Care Team Providers Care Licensed Optician Name Role Phone Cony Camilo Primary Care Provider [phone] Allergies Active Allergy Reactions Criticality Noted Date Comments Cetirizine Hcl 09/12/2016 unknown Erythromycin GI Upset 05/17/2022 Lorazepam Insomnia Low 12/19/2021 Pt had two lorazepam and pt had difficulties being woken up Neomycin Rash Low 06/12/2016 Patch testing result 06/12/16 Penicillins Hives Medium 11/02/2012 Medications losartan (COZAAR) 50 MG tablet Take 50 mg by mouth daily. Active finasteride (PROSCAR) 5 mg tablet One tablet by mouth every other day Active cholecalciferol (VITAMIN D3) 400 unit tablet Take 2,500 Units by mouth daily. Active zoledronic acid (RECLAST) 5 mg/100 mL PgBk Inject 5 mg into the vein once. Active pravastatin (PRAVACHOL) 40 MG tablet Take 40 mg by mouth daily. 07/23/20 25 Discontinued Lactobacillus acidophilus (PROBIOTIC ORAL) Take by mouth. 07/23/20 25 Discontinued Ca cit-D3-mag#11-z odg-kwrk-kms-apolinar r (CALTRATE 600+D) 600 mg calcium- 800 unit-50 mg Tab Take 1 tablet by mouth daily. 1200mg 07/23/20 25 Discontinued Active Problems Problem Noted Date Diagnosed Date Mass of soft tissue of upper arm 04/05/2022 Family history of malignant neoplasm of ovary Overview (05/11/2016): Overview: Mother Family history of malignant neoplasm of breast 0 03/17/2004 Overview (05/11/2016): Overview: Maternal aunt Osteoporosis 01/30/2003 Overview (05/11/2016): Overview: see above. Rpt BD 12/05- unchanged (osteopenis in spine, osteoporosis in hip. cont calcium, check vit D, rpt 2 years 2008 - osteopoosis. T score -2.5 in fem neck and 2.0 in spine. Was on Fosamax in past - 200 0 -12/10 - BD sl worse. spine -2.3 neck - 2.8 Currently seeing endocrine; on alendronate 75 mg weekly. Assessment & Plan (07/23/2025 1:37 PM EDT): She continues calcium and vitamin D supplements. She is not doing weightbearing exercises but this could help. She received her second infusion of zoledronic acid on 10/03/2024 and is due for repeat administration on 10/03/2025. Her most recent DXA scan was done at [facility] in the previous study at another facility. Although it is difficult to discuss bone mineral density changes because it was 2 different machines, it does appear that the T-score was significantly better and the most recent study in the hip remains more or less stable. I will request zoledronic acid infusion for the follow-up visit in 1 year. She will need to repeat a vitamin D level. I will also request lab work for the follow-up visit in 1 year. She is due to repeat DXA scan by 02/09/2027. Assessment & Plan (06/26/2024 9:32 AM EDT): She is getting adequate vitamin D supplements. She is taking what appears to be adequate calcium intake but is probably not being absorbed because the 24-hour urine calcium output is still low. Despite this her CTX level which is a bone resorption marker indicating increased bone breakdown is low. This would imply that she is not having a lot of bone resorption which is good. However, I do not understand why the CTX level is low because she did this level even before she received zoledronic acid. She did receive her first infusion of zoledronic acid and she is due for repeat DXA scan on 02/05/2025. She is going to do this study at [facility]. Is going to be difficult to determine the change in bone mineral density whether significant or not so we just can have to focus on the T-score because it is 2 different machines. She is due for her second infusion of zoledronic acid 10/02/2024 I will request this today. She will follow in 1 years time. She needs to repeat lab work again prior to the follow-up visit fasting in 1 year. For the zoledronic infusion she is going to need to repeat a basic metabolic panel and a vitamin D level prior to the infusion. So I will schedule this 2 weeks prior to the due date in October so this will be done around August. Assessment & Plan (06/26/2023 9:36 AM EDT): The patient is getting adequate vitamin D and she seems to be getting adequate calcium intake in her diet and supplements but the 24-hour urine calcium output is still low I suggest that she increase the calcium intake to 4 capsules a day that we will give 1000 mg. She finds it difficult to take 3 times a day and I told her to take 2 capsules twice a day with food. She has decided to use zoledronic acid and I have placed an order for this. This is going to be administered in the infusion center I also put referral to the infusion center at [facility]. She should continue dietary calcium intake in addition to supplements. She will repeat lab work in 1 years and see me in 1 year. She does need to have a basic metabolic panel and vitamin D levels drawn I believe 3 weeks prior to using zoledronic acid but she should not do this lab work until she has been notified of the date by the infusion center. Assessment & Plan (03/13/2023 9:58 AM EDT): Patient diagnosed with osteopenia in 2000 who progressed to osteoporosis in 2012 her only risk factors are age and menopause. She has lost 0.75 inches in height and has had 1 fragility fracture. Biochemical work-up showed normal reference range vitamin D levels but 24-hour urine calcium output was low. This is despite the fact that the patient gets approximately 883 mg of calcium in her diet this is an estimate and she is also taking Bluebonnet liquid calcium citrate which she usually does not take with food but 1 would think that in the liquid form it would be absorbed and usually calcium citrate does not need to be taken with food. But there is no denying that the 24-hour urine calcium output is low and that implies that she is either not getting adequate calcium intake or the calcium is not being absorbed. I suggested that she take the calcium citrate liquid form with food and see if there is any changes. I also did inquire if with certain that she is eating as much calcium products as we initially estimated and she believes that she is. Based on her bone mineral density it appears to be stable but there was a decrease which is considered significant in the spine and left total hip. The left forearm T score improved. 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 The patient is considering using antiresorptive medications and I informed her that the antiresorptive medications include alendronate which is an oral bisphosphonate and this is taken once a week on an empty stomach with water and she must remain upright for 30 minutes either in a sitting or standing position and she must not eat for 30 minutes. The same type of medication is available in IV form and is an infusion once a year and it can be used up to a period of 3 years. The third antiresorptive medication is a rank ligand antagonist this is Prolia subcutaneous injection every 6 months. With this medication she has to take adequate calcium intake. She must not miss an injection because this rapid decrease in bone mineral density if she misses her injection and if she ever decides to stop she must follow it up with alendronate for period of 1 year to prevent decrease in bone mineral density. She states that she is going to research these medications. She will make a decision at a later date. In the meantime she is going to make some changes to how she takes her calcium supplement and we will repeat 24-hour urine calcium output and a comprehensive in 3 months time. Assessment & Plan (12/04/2022 10:31 AM EST): 77-year-old woman who was diagnosed with osteopenia May 06, 2001. She likely progressed to osteoporosis by 2013 but was using Fosamax prior to that and she used it for 4 years. Essentially it was discontinued because of bone mineral density was better with the medication and also she was concerned for potential adverse effects with the use of bisphosphonates. She has not used bisphosphonates since but is getting adequate calcium intake and come by nation with diet and supplements also adequate vitamin D supplements. She has had 1 fragility fracture of the right wrist and approximately 0.75 inch decrease in height. Her bone mineral density has remained stable since the previous DXA scan. It did decrease by 1.17% in the spine but again this is considered nonsignificant. Today we discussed that she does have osteoporosis of the left femoral neck so based on guidelines she will benefit from antiresorptive medications. She has opted to repeat the DXA scan at [facility] to see if there is any changes in bone mineral density to determine if she does want to take antiresorptive medications to continue as she is currently doing. I also suggested that she can do weight bearing exercises such as weight lifting, weight vest which will help with bone strength for bone mineral density. Lastly I requested biochemical studies for evaluation of secondary causes of osteoporosis. I informed her that lab work has to be done fasting in the 24-hour urine collection has to be collected for full 24 hours. She will return for follow-up in 3 months. We also touched on antiresorptive medications therapy such as oral bisphosphonates, IV Reclast, and Prolia. We did not go extensively into this and we can do this on the next visit. I did give her a handout on Prolia. OA (osteoarthritis) of knee Hyperlipidemia Hypertension Red skin Eczema Encounter for preprocedure s creening laboratory testing for COVID-19 Encounters Date Type Department Care Team Description 07/29/2025 2:27 PM EDT Hospital Encounter [facility] [address] [place] [address] Philip Yang DO 07/29/2025 Transcribe Orders Virtual Department [address] [place] [address] Cony Camilo PA Breast screening (Primary Dx) 07/23/2025 1:20 PM EDT Office Visit [facility] [address] [place] [address] Philip Yang DO Age-related osteoporosis without current pathological fracture (Primary Dx) 07/01/2025 12:33 PM EDT - 07/01/2025 11:59 PM EDT Hospital Encounter [address] [address] Cony Camilo PA Discharge Disposition: Home or Self Care 06/12/2025 Telephone [facility] [address] [facility] [place] [place] [address] Kaylee Rivera bone density results 06/11/2025 7:40 AM EDT - 06/11/2025 11:59 PM EDT Hospital Encounter [facility] [address] [place] [address] Philip Yang DO Discharge Disposition: Home or Self Care 06/02/2025 Telephone [facility] [address] [place] [address] Philip Yang DO Results 12/12/2024 Procedure Pass [address] [address] from Last 3 Months Family History Medical History Relation Comments Breast cancer Maternal Aunt Ashkenazi Oriental Orthodox ancestry Maternal Grandfather Breast cancer Maternal Grandfather My maternal aunt Ashkenazi Oriental Orthodox ancestry Mother Ovarian cancer Mother Mother Relation Status Comments Maternal Aunt Alive Maternal Grandfather Mother Social History Tobacco Use Types Packs/Day Years Used Date Smoking Tobacco: Never Passive Smoke Exposure: Never Smokeless Tobacco: Never Tobacco Cessation:Counseling Given: Not Answered Alcohol Use Standard Drinks/Week Comments Never 0 [...] file Not on file 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 Not on file Not on file Last Filed Vital Signs Vital Sign Reading Time Taken Comments Blood Pressure 142/90 07/23/2025 1:15 PM EDT Pt would like a BP recheck at the end of the visit Pulse 60 07/23/2025 1:15 PM EDT Temperature 36 C (96.8 F) 10/03/2024 10:19 AM EST Respiratory Rate 20 07/23/2025 1:15 PM EDT Oxygen Saturation 100% 07/23/2025 1:1 5 PM EDT Inhaled Oxygen Concentration - - Weight 47.4 kg (104 lb 9.6 oz) 07/23/2025 1:15 PM EDT Height 154.9 cm (5' 1 ) 03/16/2025 1:25 PM EDT Body Mass Index 19.76 03/16/2025 1:25 PM EDT Plan of Treatment Upcoming Encounters Date Type Department Care Team (Late st Contact Info) Description 07/29/2025 Procedure Pass [address] [address] 10/05/2025 10:30 AM EST Infusion [facility] [address] [place] [address] [address] [address] 03/01/2026 11:15 AM EDT Appointment [facility] Bone Density [address] [address] Trey Philip [address] [address] 07/05/2026 10:15 AM EDT Appointment [address] [address] Cony Camilo PA [address] [place] [phone] [email or web address] 07/29/2026 1:00 PM EDT Office Visit [facility] [address] [place] [address] [place] [address] Philip Yang DO [address] [place] [address] [email or web address] Health Maintenance Due Date Last Done Comments DEPRESSION SCREENING 1957 HEPATITIS C SCREENING 1964 PNEUMOCOCCAL VACCINES (50+ years) (1 of 1 - PCV) 1996 ZOSTER VACCINES (1 of 2) 1996 RSV VACCINE (1 - 1-dose 75+ series) 2021 Adult Td,Tdap Booster 02/23/2022 02/24/2012 INFLUENZA VACCINE (#1) 2025 COVID-19 VACCINE ( - 2024- season) 2025 LIPID PANEL 11/29/2025 11/29/2020 BLOOD PRESSURE 01/21/2026 07/23/2025 CREATININE LEVEL 06/11/2026 06/11/2025, 08/2024, 06/12/2024, Additional history exists POTASSIUM LEVEL 06/11/2026 06/11/2025, 08/31, 08/20/2023, Additional history exists OSTEOPOROSIS SCREENING INITIAL (ONE-TIME) Completed 02/09/2025, 02/05/2023, 12/04/2022, Additional history exists SMOKING STATUS SCREENING (Once After 26 Yrs) Completed 07/23/2025 HEPATITIS A VACCINES Aged Out No long er eligible based on patient's age to complete this topic HIB VACCINES Aged Out No longer eligi ble based on patient's age to complete this topic MENINGOCOCCAL VACCINES (ACWY) Aged Out No longer eligible based on patient's age to complete this topic MENINGOCOCCAL VACCINES (B) Aged Out N o longer eligible based on patient's age to complete this topic Goals Goal Patient Goal Type Associated Problems Recent Progress Patient-Stated? Author Attending meditation / other stress management classes Lifestyle No Juan Gaviria MD, MPH Medical Devices Implanted Type Area Aluminum Hydroxide Process Operator Device Identifier Shelf Expiration Date Model / Serial / Lot Radius Plate 3 Hole Bone Distal Volar Radial Geminus Titanium Rt Narrow - [id number] Implanted:Qty: 1 on 12/23/2021 by Pao De MD at [facility] Right: Wrist [employer] [id number] / / Peg Bone 18x2.3mm Threaded Geminus Locking - [id number] Implanted:Qty: 5 on 12/23/2021 by Pao De MD at [facility] Right: Wrist [employer] [facility] [id number] / / Peg Bone L14x2.3mm Locking Threaded Geminus Titanium Implantable Fossa Specific Plating System Fixation - [id number] Implanted:Qty: 1 on 12/23/2021 by Pao De MD at [facility] Right: Wrist [employer] [facility] [id number] / / Procedures Procedure Name Priority Date/Time Associated Diagnosis Comments BI MAMMOGRAM SCREENING WITH TOMOSYNTHESIS WITH CAD (BILATERAL) Routine 07/01/2025 1:05 PM EDT Breast screening COMPREHENSIVE METABOLIC PANEL Routine 06/11/2025 7:41 AM EDT Age-related osteoporosis without current pathological fracture COLLAGEN TYPE 1B-TELOPEPTIDE, BLOOD Routine 06/11/2025 7:41 AM EDT Age-related osteoporosis without current pathological fracture BD DXA AXIAL (SPINE) WITH HIP Routine 02/09/2025 9:15 AM EDT Age-related osteoporosis without current pathological fracture from Last 3 Months or Most Recently Relevant to Health Maintenance Results * BI MAMMOGRAM SCREENING WITH TOMOSYNTHESIS WITH CAD (BILATERAL) (07/01/2025 1:05 PM EDT) Anatomical Region Laterality Modality Breast Left, Breast Right, Breast Bilateral Bila teral Mammography 07/01/2025 4:34 PM EDT Impressions 07/01/2025 4:53 PM EDT No mammographic evidence of malignancy in either breast. Annual screening mammography is recommended. BI-RADS 2 BENIGN The patient will be notified of the results and recommendations. Narrative 07/01/2025 4:53 PM EDT BI MAMMOGRAM SCREENING WITH TOMOSYNTHESIS WITH CAD (BILATERAL) Additional patient information: Screening. COMPARISON: Comparison is made with relevant prior imaging. Breast composition: The breasts are heterogeneously dense, which may obscure small masses. FINDINGS: No abnormal masses, suspicious calcifications, or other significant findings are identified mammographically in either breast. Asymmetry in the slight inner posterior right breast is unchanged from 10/31/2018. Procedure Note Ori Ward MD - 07/01/2025 BI MAMMOGRAM SCREENING WITH TOMOSYNTHESIS WITH CAD (BILATERAL) Additional patient information: Screening. COMPARISON: Comparison is made with relevant prior imaging. Breast composition: The breasts are heterogeneously dense, which mayobscure small masses. FINDINGS: No abnormal masses, suspicious calcifications, or other significantfindings are identified mammographically in either breast. Asymmetry inthe slight inner posterior right breast is unchanged from 10/31/2018. IMPRESSION: No mammographic evidence of malignancy in either breast. Annual screening mammography is recommended. BI-RADS 2 BENIGN The patient will be notified of the results and recommendations. Cony WELSH IMG MG EXAMS Final Result * (ABNORMAL) Collagen type 1b-telopeptide, blood (06/11/2025 7:41 AM EDT) Collagen CTx 79(L) pg/mL [facility] Comment: (NOTE) REFERENCE VALUE 148-967 (18-29 y) 150-635 (30-39 y) 131-670 (40-49 y) 183-1060 (50-59 y) 171-970 (60-69 y) 152-858 (>70 y) 136-689 (Premenopausal) 177-1015 (Postmenopausal) Flagging is based on the age-specific reference interval and not menopausal status. Blood 06/11/2025 7:41 AM EDT 06/11/2025 7:52 AM EDT [facility] Final Resul t [facility] [address] [place] [address] * Comprehensive metabolic panel (06/11/2025 7:41 AM EDT) SODIUM 134 133 - 146 mmol/L [facility] POTASSIUM 4.0 3.3 - 5.1 mmol/L [facility] CHLORIDE 98 96 - 108 mmol/L [facility] CO2 26 21 - 35 mmol/L [facility] BUN 13 6 - 19 mg/dL [facility] CREATININE 0.70 0.5 - 1.5 mg/dL [facility] GLUCOSE 82 70 - 99 mg/dL [facility] ALBUMIN 4.3 3.9 - 4.8 g/dL [facility] TOTAL PROTEIN 6.8 6.5 - 8.0 g/dL [facility] CALCIUM 9.3 8.4 - 10.3 mg/dL [facility] ALKALINE PHOSPHATASE 51 39 - 117 U/L [facility] TOTAL BILIRUBIN 0.9 0.0 - 1.2 mg/dL [facility] AST 19 0 - 37 U/L [facility] ALT 11 0 - 40 U/L [facility] GLOBULIN 2.5 1 - 4.8 g/dL [facility] EGFR 88 >59 mL/min/1.7 3m2 [facility] Comment:Estimated glomerular filtration rate calculated using the CKD-EPI refit equation. ANION GAP 14 10 - 20 mmol/L [facility] Blood 06/11/2025 7:41 AM EDT 06/11/2025 7:52 AM EDT us Philip Yang LAB BLOOD ORDERABLES Final Resul t Performing Organization Address City/[facility]/ZIP Co de Phone Number [address] [address] * BD DXA AXIAL (SPINE) WITH HIP (02/09/2025 9:15 AM EDT) Anatomical Region Laterality Modality Bone Density Bone Density 02/09/2025 9:09 AM EDT Impressions 02/10/2025 9:03 AM EDT Interpretation: Osteoporosis. Narrative 02/10/2025 9:03 AM EDT Referred By: PHILIP YANG Indications: Osteoporosis Scanner: [employer] A with serial# of [id number] located at [facility] Bone Density Scan (DXA) 02/09/25 Details of prior DXA scans are available by clicking View Full Report BMD T- Z- Skeletal Site gm/cm2 score score BMD Change Since Prior Scan ------ ----- ----- PA Spine (L1 L2 L3) 0.859 -1.40 1.10 N/A Total Hip (Left) 0.671 -2.20 -0.20 N/A Femoral Neck (Left) 0.532 -2.90 -0.60 N/A Total Hip (Right) 0.677 -2.20 -0.20 N/A Femoral Neck (Right) 0.566 -2.60 -0.30 N/A ------ ----- ----- * Denotes significant change when >= 0.022 g/cm2 for the spine, 0.027 g/cm2 for the total hip, 0.029 g/cm2 for the femoral neck. Interpretation: Osteoporosis. Technical Quality: Imaging of all sites was of adequate quality. FRAX: A FRAX(r) score is not provided because the patient has osteoporosis, which is generally an indication for treatment. Reviewed By: Edu Pro MD on 02/10/2025 09:03:38 Additional Information: -World Health Organization criteria classify adults based on lowest T-score at PA spine, hip or forearm: Normal (T-score >= -1.0), Osteopenia (T-score between -1 and -2.5), or Osteoporosis (T-score <= -2.5). At [facility], T-scores are compared to peak bone density of a young white gender matched reference population. - For premenopausal women and men under the age of 50, Z-scores (comparison to age, gender, and ethnicity matched reference population) are used: Above expected range for age (Z-score >= 2.0), Within expected range of age (Z-score 1.9 to -1.9), or Below expected range for age (Z-score <= -2.0). - The Bone Health and Osteoporosis Foundation recommends that treatment be considered in men aged more than 50 years and in postmenopausal women with ANY of the following: Prior hip or vertebral fractures; T-score of <= -2.5 at the PA spine or hip; or 10 year fracture probability by FRAX of >= 3% for the hip or >= 20% for major osteoporotic fracture. - The FRAX algorithm (https://www.robert.ac.uk/FRAX/tool.aspx) is designed to predict 10-year fracture risk in treatment-naive adults between the ages of 40 and 90. It is not intended to be used in those receiving pharmacologic osteoporosis treatment. - The TBS is derived from the texture of the DXA spine image and has been shown to be related to bone microarchitecture and fracture risk. This data provides information independent of BMD value. It adds to fracture risk assessment with a FRAX adjusted for TBS score. If your patient had a TBS and qualified for a FRAX score, the reported FRAX score has been adjusted for TBS. TBS Score Interpretation 1.350 and greater Normal bone microarchitecture 1.200 to 1.350 Partially degraded bone microarchitecture 1.200 and less Degraded bone microarchitecture - Including race/ethnicity in the generation of T- or Z-scores or in the FRAX calculation is complicated, and currently undergoing active review to ensure that we can give patients the best information on their risk of fracture. - Some prior studies may not be compatible with our comparison software. - Click on View Full Report to see subsequent pages with images and prior bone density results. Procedure Note Edu Pro MD - 02/10/2025 Referred By: PHILIP YANG Indications: Osteoporosis Scanner: [employer] A with serial# of [id number] located at [facility] Bone Density Scan (DXA) 02/09/25 Details of prior DXA scans are available by clicking View Full Report BMD T- Z- Skeletal Site gm/cm2 score score BMD Change Since Prior Scan ------ ----- PA Spine (L1 L2 L3) 0.859 -1.40 1.10 N/A Total Hip (Left) 0.671 -2.20 -0.20 N/A Femoral Neck (Left) 0.532 -2.90 -0.60 N/A Total Hip (Right) 0.677 -2.20 -0.20 N/A Femoral Neck (Right) 0.566 -2.60 -0.30 N/A ------ ----- * Denotes significant change when >= 0.022 g/cm2 for the spine, 0.027g/cm2 for the total hip, 0.029 g/cm2 for the femoral neck. Interpretation: Osteoporosis. Technical Quality: Imaging of all sites was of adequate quality. FRAX: A FRAX(r) score is not provided because the patient hasosteoporosis, which is generally an indication for treatment. Reviewed By: Edu Pro MD on 02/10/2025 09:03:38 Additional Information: -World Health Organization criteria classify adults based on lowestT-score at PA spine, hip or forearm: Normal (T-score >= -1.0), Osteopenia (T-score between -1 and -2.5), or Osteoporosis (T-score <= -2.5). At [facility], T-scores are compared to peak bone density of a young white gender matched reference population. - For premenopausal women and men under the age of 50, Z-scores(comparison to age, gender, and ethnicity matched reference population) are used:Above expected range for age (Z-score >= 2.0), Within expected range of age (Z-score 1.9 to -1.9), or Below expected range for age (Z-score <= -2.0). - The Bone Health and Osteoporosis Foundation recommends that treatment be considered in men aged more than 50 years and in postmenopausal women with ANY of the following: Prior hip or vertebral fractures; T-score of <= -2.5 at the PA spine or hip; or 10 year fracture probability by FRAX of >= 3%for the hip or >= 20% for major osteoporotic fracture. - The FRAX algorithm (https://www.robert.ac.uk/FRAX/tool.aspx) is designed to predict 10-year fracture risk in treatment-naive adultsbetween the ages of 40 and 90. It is not intended to be used in those receiving pharmacologic osteoporosis treatment. - The TBS is derived from the texture of the DXA spine image and has been shown to be related to bone microarchitecture and fracture risk. This data provides information independent of BMD value. It adds to fracture risk assessment with a FRAX adjusted for TBS score. If your patient had a TBSand qualified for a FRAX score, the reported FRAX score has been adjusted for TBS. TBS Score Interpretation 1.350 and greater Normal bone microarchitecture 1.200 to 1.350 Partially degraded bone microarchitecture 1.200 and less Degraded bone microarchitecture - Including race/ethnicity in the generation of T- or Z-scores or in the FRAX calculation is complicated, and currently undergoing active review to ensure that we can give patients the best information on their risk of fracture. - Some prior studies may not be compatible with our comparison software. - Click on View Full Report to see subsequent pages with images andprior bone density results. IMPRESSION: Interpretation: Osteoporosis. Philip Yang DO IMG BD BONE DENSITY DEXA Final R esult from Last 3 Months or Most Recently Relevant to Health Maintenance Insurance MEDICARE PART A & B [facility] [employer] ENHANCE SUPPLEMENT MEDICARE PART A & B [facility] MEDICARE ENHANCE SUPPLEMENT MEDICARE PART A & B [facility] MEDICARE ENHANCE SUPPLEMENT MEDICARE PART A & B [facility] MEDICARE ENHANCE SUPPLEMENT MEDICARE PART A & B [facility] MEDICARE ENHANCE SUPPLEMENT MEDICARE PART A & B [facility] MEDICARE ENHANCE SUPPLEMENT MEDICARE PART A & B [facility] MEDICARE ENHANCE SUPPLEMENT MEDICARE PART A & B [facility] MEDICARE ENHANCE SUPPLEMENT MEDICARE PART A & B [facility] MED[employer] ENHANCE SUPPLEMENT Care Teams Licensed Optician Relationship Specialty Start Date End Date Cony Camilo PA [address] [place] [id number] [email or web address] PCP - General 12/09/21 Additional Source Comments The information contained in this document represents components of the legal health record. It is not the complete legal health record.[facility]
--- OUTSIDE RECORDS SUMMARY | 2025-07-29 17:08 | XMS_ITS | Encounter Summary ---
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 Not on file Not on file documented as of this encounter Plan of Treatment Upcoming Encounters Date Type Department Care Team (Late st Contact Info) Description 07/29/2025 Procedure Pass [facility], [address] [address] 10/05/2025 10:30 AM EST Infusion [facility] [address] [place] [address] Jaxon Yang DO [address] [place] [address] 03/01/2026 11:15 AM EDT Appointment [facility], Bone Density - [address] [address] Trey Jaxon DO [address] [place] [address] [email or web address] 07/05/2026 10:15 AM EDT Appointment [facility], Mammography- [address] [address] Cony Camilo PA 6 [place] [address] [email or web address] 07/29/2026 1:00 PM EDT Office Visit [facility] [address] [place] [address] [place], Jaxon, [address] [address] [email or web address] documented as of this encounter Goals Goal Patient Goal Type Associated Problems Recent Progress Patient-Stated? Author Attending meditation / other stress management classes Lifestyle No Juan Gaviria MD, MPH documented as of this encounter Visit Diagnoses Not on filedocumented in this encounter Care Teams Cyber Defense Forensics Analyst Relationship Specialty Start Date End Date Cony Camilo PA [address] [place] [address] [email or web address] PCP - General 12/09/21 documented as of this encounter Additional Source Comments The information contained in this document represents components of the legal health record. It is not the complete legal health record.[facility]
--- OUTSIDE RECORDS SUMMARY | 2025-07-29 17:08 | XMS_ITS | Encounter Summary ---
Author Organization [facility] Address [address] [place] [address] Phone Care Team Providers Care Fish Peddler Name Role Phone Cony Camilo Primary Care Provider Encounter Details Date Type Department Care Team (Late st Contact Info) Description 12/20/2021 Prep for Surgery [facility] Orthopedics & Sports Medicine [address] [place] [address] Pao De MD [address] [place] [address] Orthopedics & Sports Medicine, [facility] 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 Not on file Not on file documented as of this encounter Plan of Treatment Upcoming Encounters Date Type Department Care Team (Late Contact Info) Description 07/29/2025 Procedure Pass [facility], [address] [address] 10/05/2025 10:30 AM EST Infusion [facility] [address] [place] [address] Jaxon Yang DO [address] [place] [address] 03/01/2026 11:15 AM EDT Appointment [facility], Bone Density [address] [address] Jaxon Yang DO [address] [place] [address] 07/05/2026 10:15 AM EDT Appointment [facility], Mammography[address] [address] Cony Camilo PA 6 [place] [address] [email or web address] 07/29/2026 1:00 PM EDT Office Visit [facility] [address] [place] [address] Jaxon Yang 22 [place] [address] documented as of this encounter Goals Goal Patient Goal Type Associated Problems Recent Progress Patient-Stated? Author Attending meditation / other stress management classes Lifestyle No Juan Gaviria MD, MPH documented as of this encounter Visit Diagnoses Not on filedocumented in this encounter Care Teams Fish Peddler Relationship Specialty Start Date End Date Cony Camilo PA [address] [place] [address] [email or web address] PCP - General 12/09/21 documented as of this encounter Additional Source Comments The information contained in this document represents components of the legal health record. It is not the complete legal health record.[facility]
--- OUTSIDE RECORDS SUMMARY | 2025-07-29 17:08 | XMS_ITS | Encounter Summary ---
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 file Not on file documented as of this encounter Plan of Treatment Upcoming Encounters Date Type Department Care Team (Late st Contact Info) Description 07/29/2025 Procedure Pass [address] [address] 10/05/2025 10:30 AM EST Infusion [address] [address] Jaxon Yang [address] [address] [email or web address] 03/01/2026 11:15 AM EDT Appointment [facility] Bone Density [address] [address] Jaxon Yang [address] [address] [email or web address] 07/05/2026 10:15 AM EDT Appointment [address] [address] Cony Camilo PA [address] [place] [address] [email or web address] 07/29/2026 1:00 PM EDT Office Visit [facility] [address] [place] [address] Jaxon Yang [address] [address] documented as of this encounter Goals Goal Patient Goal Type Associated Problems Recent Progress Patient-Stated? Author Attending meditation / other stress management classes Lifestyle No Juan Gaviria MD, MPH documented as of this encounter Results * BI MAMMOGRAM DIAGNOSTIC WITH TOMOSYNTHESIS WITH CAD (RIGHT) (03/27/2024 3:19 PM EDT) Anatomical Region Laterality Modality Breast Right, Breast Bilateral Right M ammography 03/27/2024 3:27 PM EDT Impressions 03/27/2024 3:37 PM EDT No evidence of malignancy. BI-RADS 1 NEGATIVE Results and recommendations were communicated to the patient at time of examination. Narrative 03/27/2024 3:37 PM EDT BI MAMMOGRAM DIAGNOSTIC WITH TOMOSYNTHESIS WITH CAD (RIGHT) Additional patient information: Abnormal screening mammography. Tissue asymmetry posterior mid to upper right breast MLO projection only. COMPARISON: Comparison made with previous mammography 02/18/2024 through 09/28/2014. Breast composition: There are scattered areas of fibroglandular density. FINDINGS: Right Mammogram: Area of concern effaces with compression. No persistent suspicious abnormality. Cony WELSH IMG MG EXAMS Final Result documented in this encounter Visit Diagnoses Diagnosis Abnormal finding on mammography- Primary Abnormal finding on mammography documented in this encounter Care Teams Gate Shear Operator Relationship Specialty Start Date End Date Cony Camilo PA [address] [place] [address] [email or web address] PCP - General 12/09/21 documented as of this encounter Additional Source Comments The information contained in this document represents components of the legal health record. It is not the complete legal health record.[facility]
--- OUTSIDE RECORDS SUMMARY | 2025-07-29 17:08 | XMS_ITS | Encounter Summary ---
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 Not on file Not on file documented as of this encounter Plan of Treatment Upcoming Encounters Date Type Department Care Team (Late st Contact Info) Description 07/29/2025 Procedure Pass [address] [place] [address] 10/05/2025 10:30 AM EST Infusion [facility] [address] [place] [address] Jaxon Yang [address] [place] [address] 03/01/2026 11:15 AM EDT Appointment [facility], Bone Density - [address] [address] Jaxon Yang [address] [address] 07/05/2026 10:15 AM EDT Appointment [facility], Mammography- [address] [address] Cony Camilo PA [address] [place] [address] [email or web address] 07/29/2026 1:00 PM EDT Office Visit [facility] [address] [place] [address] Jaxon Yang, [address] [address] [email or web address] documented as of this encounter Goals Goal Patient Goal Type Associated Problems Recent Progress Patient-Stated? Author Attending meditation / other stress management classes Lifestyle No Juan Gaviria MD, MPH documented as of this encounter Visit Diagnoses Not on filedocumented in this encounter Care Teams Legal Document Assistant Relationship Specialty Start Date End Date Cony Camilo PA [address] [place] [address] [email or web address] PCP - General 12/09/21 documented as of this encounter Additional Source Comments The information contained in this document represents components of the legal health record. It is not the complete legal health record.[facility]
== END 2025-07-29 14:21 | disposition home or self-care (01) ==
LOC: HO.HNS 13:25
PROVIDERS: PCP Physician Assistant; Visit Provider Neurological Surgery
DX: M47.10 Other spondylosis with myelopathy, site unspecified (principal)
CPT/HCPCS: 99213

== ENCOUNTER → 2025-07-29 13:24 | Outpatient (BNVA) | payer MEDICARE, OTHER, SELFPAY | PROVIDERS: PCP Physician Assistant; Visit Provider Neurological Surgery | DX: M47.10 Other spondylosis with myelopathy, site unspecified (principal) | CPT/HCPCS: 99212 ==